=== PATIENT | male | born 1965 | race Caucasian/White ===

== ENCOUNTER 2022-06-21 11:52 | Emergency (ER) | payer OTHER ==
[2022-06-21] MEDS ORDERED: MAGNESIUM SULFATE-D5W PMX 1 GM in DEXTROSE/WATER 1 100ML.BAG IVPB STA (12:27)
[2022-06-21] MEDS ORDERED: methylPREDNISolone SOD SUCCI 125 MG/2 ML VIAL IV STA (12:27)
[2022-06-21] MEDS ORDERED: ALBUTEROL HFA INHALER INHALATION STA (12:27)
[2022-06-21] MEDS ORDERED: IPRATROPIUM-ALBUTEROL 3 ML NEB INHALATION STA ×2 (12:27→13:38)
[2022-06-21] MEDS ORDERED: ASPIRIN 81 MG PO STA (12:28)
--- NOTE | 2022-06-21 12:42 | ED ---
General Adult HPI - General Chief complaint: Shortness of Breath Stated complaint: SOB Time Seen by Provider: 06/21/22 12:11 Source: patient, RN notes reviewed, old records reviewed Mode of arrival: EMS Limitations: no limitations - History of Present Illness Initial comments: Patient is a 57-year-old male with no significant past medical history other than chronic tobacco use with no previously diagnosed medical illness presents emergency Department complaining of a one-month history of slightly worsening shortness of breath, however 3 days of worsened shortness of breath. It comes and goes. Does endorse mild cough. States he feels like he is wheezing. Noticed it was severe 3 days ago when he was working outside and humid weather. Has gotten worse since that time intermittently. States it comes and goes, no known association with rest but does notice that it does sometimes come back with activity. Denies any chest pain but states there is an occasional pressure with shortness of breath is present and is not on any medications or inhalers at home. Does endorse a productive cough of clear mucus. Denies any abdominal pain, nausea, vomiting. Denies any current chest pain, shortness breath. Denies any fevers, chills. No known sick contacts. Was vaccinated for Covid. No history of leg swelling. Denies orthopnea. Denies PND. No history of blood clots. Is not on blood thinners. Presents for further evaluation at this time. Did originally present to urgent care and states that the shortness of breath was Severe when he walks in the car into urgent care, causing him to need to sit down and rest. Denies syncopal episode. Denies hitting his head or injuring himself. Currently denies any symptoms at this time. - Related Data Home Medications Medication Instructions Recorded Confirmed Fexofenadine HCl [Heidi Allergy] 180 mg PO DAILY 06/21/22 06/21/22 Ibuprofen [Motrin Ib] 800 mg PO Q8H PRN 06/21/22 06/21/22 Melatonin 3 mg PO HS 06/21/22 06/21/22 Previous Rx's Medication Instructions Recorded Albuterol Inhaler [Ventolin Hfa 2 puff INHALATION RT-QID #8 gm 06/21/22 Inhaler] Doxycycline Hyclate 100 mg PO BID 7 Days #14 cap 06/21/22 predniSONE [Deltasone] 40 mg PO DAILY 5 Days #10 tab 06/21/22 Allergies Allergy/AdvReac Type Severity Reaction Status Date / Time egg AdvReac STOMACH Verified 06/21/22 12:52 CRAMPS Review of Systems ROS Statement: Those systems with pertinent positive or pertinent negative responses have been documented in the HPI. Review of Systems: CONST: Denies fever EYES: Denies blurry vision ENT: Denies nasal congestion C/V: Denies Chest pain RESP: Endorses shortness of breath GI: Denies abdominal pain : Denies dysuria SKIN: Denies rash. MSK: Denies joint pain. NEURO: Denies headache ROS Other: All systems not noted in ROS Statement are negative. Past Medical History Past Medical History: No Reported History History of Any Multi-Drug Resistant Organisms: None Reported Past Surgical History: No Surgical Hx Reported Past Psychological History: No Psychological Hx Reported Smoking Status: Current every day smoker Past Alcohol Use History: None Reported Past Drug Use History: None Reported General Exam - General Exam Comments Initial Comments: General: Appears in no acute distress. HEAD: Normal with no signs of head trauma. EYES: PERRLA, EOMI, conjunctiva normal, no discharge. ENT: Hearing grossly intact, normal oropharynx. RESPIRATORY: Bilateral end expiratory wheezing. No rhonchi appreciated. No increased work of breathing. No hypoxia at rest. C/V: Regular rate and rhythm. S1 and S2 auscultated, no edema, peripheral pulses 2+ and intact throughout ABD: Abd is soft, nontender, nondistended EXT: Normal range of motion, no obvious deformity SKIN: No rashes or lesions observed on exposed skin. NEURO: Alert and oriented 4. Limitations: no limitations Course Vital Signs 06/21/22 06/21/22 06/21/22 11:59 13:16 13:43 Temperature 98.4 F 98 F Pulse Rate 95 68 85 Respiratory 20 16 18 Rate Blood Pressure 146/88 140/60 O2 Sat by Pulse 96 98 Oximetry 06/21/22 06/21/22 06/21/22 13:52 14:15 14:29 Temperature Pulse Rate 87 84 91 Respiratory 18 16 18 Rate Blood Pressure O2 Sat by Pulse Oximetry Medical Decision Making - Medical Decision Making Based on the patient's presentation and physical exam, I'm concerned for cardio pulmonary process for his current shortness of breath. Patient will be given an aspirin, as well as treated for COPD as he is a smoker with bilateral end expiratory wheezing. We will also obtain cardiopulmonary labs including troponin, d-dimer, BNP as we cannot rule out PE. EKG and chest x-ray will be obtained. Covid and flu swabs will be sent. He was in agreement with this plan. Vital signs are within normal limits. EKG showed no signs of acute ischemia. Chest x-ray reveals no acute cardiopulmonary process. Laboratory studies are remarkable for Covid, flu negative. Troponin is undetectable. BNP within normal limits. D-dimer within normal limits. Remainder the labs are unremarkable. On reevaluation following 2 breathing treatments, patient's wheezing is improved. Overall he is feeling improved. Vital signs remain within normal li mits. I discussed with him that I believe he has an onset of COPD as well as acute bronchitis with productive cough. We'll provide him with a dose of antibiotics prior to discharge as well as a prescription for antibiotics, steroids, inhaler. He would like to go home I do believe this is reasonable with strict return precautions. Will return if worsening shortness of breath, difficulty breathing. He was in agreement this plan. I will provide the patient with a prescription for prednisone, albuterol inhaler, doxycycline. I instructed the patient to follow up with their PCP in the next 1-3 days. . I explained that the patient should return to the emergency department if they experience any worsening symptoms. Strict return precautions were discussed with the patient. The patient expressed understanding of these instructions. I answered all questions that the patient had. The patient was discharged home in good condition with their prescriptions and follow up information. - Lab Data Result diagrams: 06/21/22 12:41 06/21/22 12:41 Lab Results 06/21/22 06/21/22 06/21/22 Range/Units 12:41 12:41 12:41 WBC 8.4 (3.8-10.6) k/uL RBC 5.02 (4.30-5.90) m/uL Hgb 15.8 (13.0-17.5) gm/dL Hct 48.5 (39.0-53.0) % MCV 96.6 (80.0-100.0) fL MCH 31.5 (25.0-35.0) pg MCHC 32.6 (31.0-37.0) g/dL RDW 12.7 (11.5-15.5) % Plt Count 249 (150-450) k/uL MPV 7.4 Neutrophils % 69 % Lymphocytes % 18 % Monocytes % 5 % Eosinophils % 6 % Basophils % 1 % Neutrophils # 5.8 (1.3-7.7) k/uL Lymphocytes # 1.5 (1.0-4.8) k/uL Monocytes # 0.4 (0-1.0) k/uL Eosinophils # 0.5 (0-0.7) k/uL Basophils # 0.1 (0-0.2) k/uL PT 10.8 (9.0-12.0) sec INR 1.0 (<1.2) APTT 25.3 (22.0-30.0) sec D-Dimer 0.32 (<0.60) mg/L FEU Sodium 140 (137-145) mmol/L Potassium 4.3 (3.5-5.1) mmol/L Chloride 105 (98-107) mmol/L Carbon Dioxide 21 L (22-30) mmol/L Anion Gap 14 mmol/L BUN 10 (9-20) mg/dL Creatinine 0.85 (0.66-1.25) mg/dL Est GFR (CKD-EPI)AfAm >90 (>60 ml/min/1.73 sqM) Est GFR (CKD-EPI)NonAf >90 (>60 ml/min/1.73 sqM) Glucose 107 H (74-99) mg/dL Calcium 9.2 (8.4-10.2) mg/dL Total Bilirubin 0.9 (0.2-1.3) mg/dL AST 25 (17-59) U/L ALT 15 (4-49) U/L Alkaline Phosphatase 65 (38-126) U/L Troponin I (0.000-0.034) ng/mL NT-Pro-B Natriuret Pep pg/mL Total Protein 7.2 (6.3-8.2) g/dL Albumin 4.4 (3.5-5.0) g/dL Coronavirus (PCR) (Not Detectd) Influenza Type A RNA (Not Detectd) Influenza Type B (PCR) (Not Detectd) 06/21/22 06/21/22 06/21/22 Range/Units 12:41 12:41 12:41 WBC (3.8-10.6) k/uL RBC (4.30-5.90) m/uL Hgb (13.0-17.5) gm/dL Hct (39.0-53.0) % MCV (80.0-100.0) fL MCH (25.0-35.0) pg MCHC (31.0-37.0) g/dL RDW (11.5-15.5) % Plt Count (150-450) k/uL MPV Neutrophils % % Lymphocytes % % Monocytes % % Eosinophils % % Basophils % % Neutrophils # (1.3-7.7) k/uL Lymphocytes # (1.0-4.8) k/uL Monocytes # (0-1.0) k/uL Eosinophils # (0-0.7) k/uL Basophils # (0-0.2) k/uL PT (9.0-12.0) sec INR (<1.2) APTT (22.0-30.0) sec D-Dimer (<0.60) mg/L FEU Sodium (137-145) mmol/L Potassium (3.5-5.1) mmol/L Chloride (98-107) mmol/L Carbon Dioxide (22-30) mmol/L Anion Gap mmol/L BUN (9-20) mg/dL Creatinine (0.66-1.25) mg/dL Est GFR (CKD-EPI)AfAm (>60 ml/min/1.73 sqM) Est GFR (CKD-EPI)NonAf (>60 ml/min/1.73 sqM) Glucose (74-99) mg/dL Calcium (8.4-10.2) mg/dL Total Bilirubin (0.2-1.3) mg/dL AST (17-59) U/L ALT (4-49) U/L Alkaline Phosphatase (38-126) U/L Troponin I <0.012 (0.000-0.034) ng/mL NT-Pro-B Natriuret Pep 221 pg/mL Total Protein (6.3-8.2) g/dL Albumin (3.5-5.0) g/dL Coronavirus (PCR) (Not Detectd) Influenza Type A RNA Not Detected (Not Detectd) Influenza Type B (PCR) Not Detected (Not Detectd) 06/21/22 Range/Units 12:41 WBC (3.8-10.6) k/uL RBC (4.30-5.90) m/uL Hgb (13.0-17.5) gm/dL Hct (39.0-53.0) % MCV (80.0-100.0) fL MCH (25.0-35.0) pg MCHC (31.0-37.0) g/dL RDW (11.5-15.5) % Plt Count (150-450) k/uL MPV Neutrophils % % Lymphocytes % % Monocytes % % Eosinophils % % Basophils % % Neutrophils # (1.3-7.7) k/uL Lymphocytes # (1.0-4.8) k/uL Monocytes # (0-1.0) k/uL Eosinophils # (0-0.7) k/uL Basophils # (0-0.2) k/uL PT (9.0-12.0) sec INR (<1.2) APTT (22.0-30.0) sec D-Dimer (<0.60) mg/L FEU Sodium (137-145) mmol/L Potassium (3.5-5.1) mmol/L Chloride (98-107) mmol/L Carbon Dioxide (22-30) mmol/L Anion Gap mmol/L BUN (9-20) mg/dL Creatinine (0.66-1.25) mg/dL Est GFR (CKD-EPI)AfAm (>60 ml/min/1.73 sqM) Est GFR (CKD-EPI)NonAf (>60 ml/min/1.73 sqM) Glucose (74-99) mg/dL Calcium (8.4-10.2) mg/dL Total Bilirubin (0.2-1.3) mg/dL AST (17-59) U/L ALT (4-49) U/L Alkaline Phosphatase (38-126) U/L Troponin I (0.000-0.034) ng/mL NT-Pro-B Natriuret Pep pg/mL Total Protein (6.3-8.2) g/dL Albumin (3.5-5.0) g/dL Coronavirus (PCR) Not Detected (Not Detectd) Influenza Type A RNA (Not Detectd) Influenza Type B (PCR) (Not Detectd) - EKG Data -: EKG Interpreted by Me EKG Comments: 12-lead Electrocardiogram Interpretation Note EKG was reviewed and interpreted by myself. 12-lead ECG performed at 1242 is interpreted by me as revealing normal sinus rhythm at a rate of 93 beats per minute. [place] is normal. AR intervals 150 ms. QRS duration is 92 ms. QTC is 387 ms.. There were no ST or T wave abnormalities to suggest myocardial ischemia or injury. R wave progression across the precordium was satisfactory. By my interpretation this EKG is non-diagnostic for acute ischemia. Disposition Clinical Impression: COPD exacerbation, Bronchitis Disposition: HOME SELF-CARE Condition: Good Instructions (If sedation given, give patient instructions): Acute Bronchitis (ED), COPD (Chronic Obstructive Pulmonary Disease) (ED) Prescriptions: predniSONE [Deltasone] 40 mg PO DAILY 5 Days #10 tab Doxycycline Hyclate 100 mg PO BID 7 Days #14 cap Albuterol Inhaler [Ventolin Hfa Inhaler] 2 puff INHALATION RT-QID #8 gm Is patient prescribed a controlled substance at d/c from ED?: No Referrals: None,Stated [Primary Care Provider] - 1-2 days Norberto Tubbs [STAFF PHYSICIAN] - 1-2 days Time of Disposition: 14:30
[2022-06-21 12:51] LABS: Basophils # (A) 0.1 k/uL (0-0.2); Basophils % (A) 1 %; Eosinophils # (A) 0.5 k/uL (0-0.7); Eosinophils % (A) 6 %; HCT 48.5 % (39.0-53.0); HGB 15.8 gm/dL (13.0-17.5); Lymphocytes # (A) 1.5 k/uL (1.0-4.8); Lymphocytes % (A) 18 %; MCH 31.5 pg (25.0-35.0); MCHC 32.6 g/dL (31.0-37.0); MCV 96.6 fL (80.0-100.0); Mean Platelet Volume 7.4; Monocytes # (A) 0.4 k/uL (0-1.0); Monocytes % (A) 5 %; Neutrophils # (A) 5.8 k/uL (1.3-7.7); Neutrophils % (A) 69 %; Platelet Count 249 k/uL (150-450); RBC 5.02 m/uL (4.30-5.90); RDW 12.7 % (11.5-15.5); WBC 8.4 k/uL (3.8-10.6)
[2022-06-21 13:05] LABS: Partial Thromboplastin Time 25.3 sec (22.0-30.0); Prothrombin Time 10.8 sec (9.0-12.0)
[2022-06-21 13:08] LABS: ALT 15 U/L (4-49); AST 25 U/L (17-59); African American GFR (CKD) >90 (>60 ml/min/1.73 sqM); Albumin 4.4 g/dL (3.5-5.0); Alkaline Phosphatase 65 U/L (38-126); Anion Gap 14 mmol/L; Blood Urea Nitrogen 10 mg/dL (9-20); Calcium 9.2 mg/dL (8.4-10.2); Carbon Dioxide 21 mmol/L (22-30); Chloride 105 mmol/L (98-107); Glucose 107 mg/dL (74-99); Non-African American GFR(CKD) >90 (>60 ml/min/1.73 sqM); Potassium 4.3 mmol/L (3.5-5.1); Sodium 140 mmol/L (137-145); Total Bilirubin 0.9 mg/dL (0.2-1.3); Total Protein 7.2 g/dL (6.3-8.2)
[2022-06-21 13:20] VITALS: TEMP 98
--- NOTE | 2022-06-21 13:41 | XR ---
EXAMINATION TYPE: XR chest 2V DATE OF EXAM: 06/21/2022 COMPARISON: NONE TECHNIQUE: PA and lateral views submitted. HISTORY: Difficulty breathing FINDINGS: The lungs are clear and there is no pneumothorax, pleural effusion, or focal pneumonia. Heart size normal. No overt failure. Hyperinflation suggests COPD. IMPRESSION: 1. No acute process.
[2022-06-21] MEDS ORDERED: DOXYCYCLINE 100 MG CAP PO STA (14:48)
[2022-06-21 15:22] VITALS: BP 140/68; PULSE 68; RESP 16
== END 2022-06-21 15:34 | disposition home or self-care (01) ==
LOC: EC 11:52
DX: J44.1 Chronic obstructive pulmonary disease with (acute) exacerbation (principal); F17.200 Nicotine dependence, unspecified, uncomplicated; Z20.822 Contact with and (suspected) exposure to COVID-19; Z91.012 Allergy to eggs
CPT/HCPCS: 36415; 94640 ×2; 93005; 85379; 83880; 80053; 84484; 85025; 85610; 85730; 87502; 87635; 71046; 99285; 96374; 96375; J2930; J3475

== ENCOUNTER → 2022-08-11 | Outpatient (CLI) | payer OTHER ==
--- NOTE | 2022-08-12 09:10 | CA ---
Stress Echo Report Corona Burrell Age: 57 Gender: M : 1965 Exam Date: 08/11/2022 09:39 Exam Location: [facility] Ht (in): 72 Wt (lb): 22 Ordering Physician: Maliha Bay DO Referring Physician: Giulia Lopez Mechanical Car Checker: Millie Carmona RDCS Technologist Procedure CPT: Indication: R55 SYNCOPE AND COLLAPSE ICD-9 Codes: Rhythm: Patient History: Cardiac Medications: Medications in past 24 hours: Contrast: Stress Results Protocol: Berny Total dose(mL): Exercise Duration (min:sec): Max ST Depression (mm): Angina Score: Paez Score: METS: 10.7 Resting HR: 85 Resting BP: 119 / 65 Peak HR: 157 Peak BP: / 74 Max Predicted HR: 164 96 % Max Predicted HR Target HR: 139 Double Product: Stress Summary: BP Response: Reason for Termination: Cardiac Symptoms: ECG Analysis Resting ECG: Stress ECG: Arrhythmia: Echo Analysis Resting Echo: Peak Echo Analysis: MEASUREMENTS (Male/Female) Normal Values CONCLUSIONS Good exercise tolerance Normal EKG in response to exercise Normal echocardiogram in response to exercise Dr. Dominik Celis MD (Electronically Signed) Final Date: 12 August 2022 09:09
== END | disposition home or self-care (01) ==
LOC: RADNMMAIN 09:16
PROVIDERS: ATTEND Family Medicine
DX: R55 Syncope and collapse (principal)
CPT/HCPCS: 93351; Q9950

== ENCOUNTER → 2022-08-19 | Outpatient (CLI) | payer OTHER ==
--- NOTE | 2022-08-19 08:22 | CTL ---
EXAMINATION TYPE: CT Low Dose Lung DATE OF EXAM ORDERED: 08/19/2022 HISTORY: Z87.891 PERSONAL HISTORY OF NICOTINE DEPENDENCE. Lung cancer screening CT DLP: 122.[address] CTDI: 3.0 mGy Automated exposure control for dose reduction was used. SCREENING VISIT: First screening visit COMPARISON: Chest radiograph 06/21/2022 TECHNIQUE: Low dose computed tomography scan was performed through the chest at 1 mm thick sections a nd reconstructed images in multiple planes at 1 mm and [address] DIAGNOSTIC QUALITY: Satisfactory FINDINGS: LUNG NODULES: No concerning pulmonary nodules. LUNGS: COPD: Severity: Mild Fibrosis: Severity: None Lymph nodes: None Other findings: None RIGHT PLEURAL SPACE: Effusion: None Calcification: None Thickening: Apical mild thickening. Pneumothorax: None LEFT PLEURAL SPACE: Effusion: None Calcification: None Thickening: Apical mild thickening. Pneumothorax: None HEART: Heart Size: Normal Coronary Calcification: None Pericardial Effusion: None OTHER FINDINGS: Upper abdomen: None Bony thorax: None Supraclavicular region: None Other: None IMPRESSION: No concerning pulmonary nodules. CT LUNG RAD AND CT CHEST RECOMMENDATION: Lung-Rad 1 Negative: Continue annual screening with LDCT in 12 months. S Modifier (other clinically significant findings): None
== END | disposition home or self-care (01) ==
LOC: RADCTMAIN 06:25
PROVIDERS: ATTEND Family Medicine
DX: Z12.2 Encounter for screening for malignant neoplasm of respiratory organs (principal); Z87.891 Personal history of nicotine dependence
CPT/HCPCS: 71271

== ENCOUNTER 2022-09-30 12:45 | Day surgery (SDC) | payer OTHER ==
[~2022-09-30 12:45] MED LIST: LACTATED RINGERS 1,000 ML IV SCH
[2022-09-30 14:00] VITALS: RESP 16; TEMP 98.1
[2022-09-30] MEDS ORDERED: PROPOFOL 10 MG/ML 20 ML VIAL IV ONE (14:53)
[2022-09-30] MEDS ORDERED: LIDOCAINE 2% INJ 20 MG/ML (2 ML VIAL) ONE (14:53)
--- NOTE | 2022-09-30 15:14 | P.PCN ---
Date of Procedure: 09/30/22 Procedure(s) Performed: BRIEF HISTORY: Patient is a 57-year-old pleasant white male scheduled for an elective colonoscopy as a part of screening for colon cancer/positive cologuard. PROCEDURE PERFORMED: Colonoscopy with snare polypectomy and tattooing with Blanca. PREOPERATIVE DIAGNOSIS: Screening for colon cancer/positive cologuard. IV sedation per Anesthesia. PROCEDURE: After informed consent was obtained, the patient, was brought into the endoscopy unit. IV sedation was administered by Anesthesia under continuous monitoring. Digital rectal examination was normal. Initially the Olympus CF-160 flexible video colonoscope was then inserted in the rectum, gradually advanced into the cecum without any difficulty. Careful examination was performed as the scope was gradually being withdrawn. Ileocecal valve and the appendiceal orifice were visualized and appeared normal. Prep was excellent. Mucosa of the cecum, ascending colon, appeared normal. In the hepatic flexure there was a 1 cm broad-based polyp removed by snare polypectomy followed by tattooing with Blanca ink. Complete polypectomy was accomplished. Rest of the transverse colon, descending colon, sigmoid colon, and rectum appeared normal. The proximal rectum there were 3 polyps measuring between 3 mm, 5 mm and 7 mm in size removed by snare polypectomy. Retroflexion was performed in the rectum and no lesions were seen. The patient tolerated the procedure well. IMPRESSION: 1 cm broad-based hepatic flexure polyp status post polypectomy followed by tattooing with Blanca ink 3 mm, 5 mm and 7 mm rectal polyp status post polypectomy RECOMMENDATIONS: Findings of this examination were discussed with the patient well as his family. He was advised to follow with the biopsy results if the biopsy reveals adenoma he can have a repeat colonoscopy in 3 years.
[2022-09-30 15:33] VITALS: BP 140/80; PULSE 77
== END 2022-09-30 15:56 | disposition home or self-care (01) ==
LOC: ORWHC2ENDO 12:45
PROVIDERS: ATTEND Internal Medicine Gastroenterology
DX: R19.5 Other fecal abnormalities (principal); D12.3 Benign neoplasm of transverse colon; K62.1 Rectal polyp
CPT/HCPCS: 45385; 44404; J2704; J2001; 88305

== ENCOUNTER → 2023-12-25 | Outpatient (CLI) | payer OTHER ==
--- NOTE | 2023-12-25 11:49 | MR ---
EXAMINATION TYPE: MR Prostate wo/w con DATE OF EXAM: 12/25/2023 9:15 AM COMPARISON: None. CLINICAL INDICATION:Male, 58 years old with history of C61 PROSTATE CA; Prostate cancer. TECHNIQUE: Multi-planar, multi-sequence imaging of the pelvis is performed prior to and following the uncomplicated administration of bolus intravenous gadolinium. CONTRAST: 9 Gadavist Interpretive Criteria: PI-RADS v2.1 SERUM PSA: 12.6 on 12/06/2023. 9.8 on 04/03/2023. SURGICAL PATHOLOGY: Positive biopsy on 09/02/2022 FINDINGS: Prostatic dimensions: 4.6 x 3.8 x 3.7 cm. "Bullet" Volume:42.33 (PSA density=0.30 ng/mL/mL) CENTRAL GLAND (Central and Transition Zones/CZ+TZ): Multiple bilateral, heterogenous appearing hypertrophic stromal nodules, without suspicious lesion. ( PI-RADS 2) PERIPHERAL ZONE (PZ): Right peripheral gland mid gland low T2 signal region measuring 27 x 13 x 15 with associated high DWI and low ADC signal. This extends along the capsule without obvious extension at this time. There is arterial enhancement within this region on postcontrast imaging. (PI-RADS 5) SEMINAL VESICLES (SV): Symmetric and unremarkable. PERIPROSTATIC TISSUES: Unremarkable. LYMPH NODES: No enlarged pelvic lymph node. REMAINING PELVIS: Bladder wall is within normal limits given distention. No abnormal free or organized intrapelvic fluid collection. No pathologic bowel dilation or mural thickening. No hernia visualized OSSEOUS STRUCTURES: No suspicious osseous abnormality. IMPRESSION: 1. PI-RADS 5 lesion in the right peripheral zone mid gland measuring 27 x 13 x 15 mm. No extracapsula r extension at this time. 2. Mild BPH, estimated gland volume 42.33 mL. 3. No suspicious osseous lesion. No lymphadenopathy. No evidence of prostate adenocarcinoma involving the periprostatic tissues.
== END | disposition home or self-care (01) ==
LOC: RADMRIMAIN 07:51
PROVIDERS: ATTEND Urology
DX: N40.0 Benign prostatic hyperplasia without lower urinary tract symptoms (principal); C61 Malignant neoplasm of prostate
CPT/HCPCS: 72197; A9585

== ENCOUNTER → 2024-01-24 | Outpatient (CLI) | payer OTHER ==
[2024-01-24 18:57] LABS: Basophils # (A) 0.14 X 10*3/uL (0.00-0.10); Basophils % (A) 2.1 %; Eosinophils # (A) 0.01 X 10*3/uL (0.04-0.35); Eosinophils % (A) 0.1 %; HGB 15.1 g/dL (13.0-17.0); Lymphocytes # (A) 2.13 X 10*3/uL (0.90-5.00); Lymphocytes % (A) 31.6 %; MCH 31.8 pg (27.0-32.0); MCHC 33.6 g/dL (32.0-37.0); MCV 94.7 FL (80.0-97.0); Mean Platelet Volume 10.2 FL (9.5-12.2); Monocytes # (A) 0.66 X 10*3/uL (0.20-1.00); Monocytes % (A) 9.8 %; NRBC Per 100 WBC 0 X 10*3/uL (0.00-0.01); Neutrophils # (A) 3.77 X 10*3/uL (1.80-7.70); Neutrophils % (A) 56.1 %; Platelet Count 283 X 10*3/uL (140-440); RBC 4.75 X 10*6/uL (4.40-5.60); RDW 12.6 % (11.5-14.5); WBC 6.73 X 10*3/uL (4.50-10.00)
[2024-01-24 19:36] LABS: Blood Urea Nitrogen 8.6 mg/dL (9.0-27.0); Calcium 9.3 mg/dL (8.7-10.3); Carbon Dioxide 26.2 mmol/L (21.6-31.8); Chloride 101 mmol/L (96-109); Glucose 123 mg/dL (70-110); Potassium 4.3 mmol/L (3.5-5.5); Sodium 138 mmol/L (135-145)
[2024-01-24 20:34] LABS: Appearance,Urine Clear (Clear); Bilirubin,Urine Negative (Negative); Blood,Urine Negative (Negative); Color,Urine Yellow (Yellow); Ketones,Urine Negative (Negative); Nitrite,Urine Negative (Negative); PH, Urine 6.5; Specific Gravity,Urine 1.011 (1.001-1.030)
== END | disposition home or self-care (01) ==
LOC: LABPAT 14:52
PROVIDERS: ATTEND Urology
DX: Z01.812 Encounter for preprocedural laboratory examination (principal); C61 Malignant neoplasm of prostate
CPT/HCPCS: 80048; 81003; 85025; 87086

== ENCOUNTER 2024-01-30 11:21 | Day surgery (SDC) | payer OTHER ==
--- NOTE | 2024-01-30 11:19 | P.HPIHPCON ---
History of Present Illness H&P Date: 01/30/24 Chief Complaint: Prostate cancer This is a 58-year-old male with history of [place] 6 prostate cancer on active surveillance, underwent an MRI, which showed evidence of a PI-RADS 5 lesion, discussed with him at this point I recommend rebiopsy in to ensure there is no progression of his disease, discussed with him the risk of biopsy which includes but not limited to bleeding, infection. He understood all the risk and agreed to proceed with an MRI fusion biopsy Consent for Procedure: I have explained the operation/procedure to the patient, including the risks, benefits, side effects, alternative therapies (including not receiving the proposed treatment or service), the likelihood of the patient achieving his/her goals, and potential recuperation problems for the procedure/sedation/analgesia, as well as any blood products, if indicated. I also explained to the patient the risks, benefits and side effects of the alternatives, as well as the risks related to not receiving the proposed procedure, care, treatment, or services. Past Medical History Past Medical History: Cancer, COPD, Osteoarthritis (OA), Prostate Disorder, Skin Disorder Additional Past Medical History / Comment(s): PSA elevated, had bx., dx. low grade prostate cancer- Pt recently diagnosed 06/2022-Stage 2 emphysema. eczema like rash to hands using steroid cream. treated for bronchitis about 3 weeks ago with abx History of Any Multi-Drug Resistant Organisms: None Reported Past Surgical History: No Surgical Hx Reported Additional Past Surgical History / Comment(s): colonscopy, prostate bx Past Anesthesia/Blood Transfusion Reactions: No Reported Reaction Additional Past Anesthesia/Blood Transfusion Reaction / Comment(s): no family problems w/anesthesia Smoking Status: Current every day smoker - Past Family History Mother Family Medical History: CVA/TIA Additional Family Medical History / Comment(s): aneurysm Medications and Allergies Home Medications Medication Instructions Recorded Confirmed Type Albuterol Inhaler [Ventolin Hfa 1 - 2 puff INHALATION Q6H PRN 01/24/24 01/24/24 History Inhaler] Ibuprofen [Motrin Ib] 600 mg PO DIRECTED PRN 01/24/24 01/24/24 History Otc Mucinex 1 tab PO HS PRN 01/24/24 01/24/24 History Tiotropium 2.5 Mcg/Puff [Spiriva 2 puff INHALATION HS 01/24/24 01/24/24 History Respimat 2.5 Mcg] Unk Steroid Cream 1 applic TOPICAL DIRECTED PRN 01/24/24 01/24/24 History Allergies Allergy/AdvReac Type Severity Reaction Status Date / Time No Known Allergies Allergy Verified 01/24/24 10:03 Surgical - Exam - General no distress, no pain - Eyes normal ocular movement, no pale - ENT normal nares, normal mucosa - Respiratory normal expansion, normal respiratory effort Assessment and Plan Assessment: OR for MRI fusion biopsies
[~2024-01-30 11:21] MED LIST changes: +GENTAMICIN 120 MG in SODIUM CHLORIDE 0.9% 100 ML IVPB PRN; -LACTATED RINGERS 1,000 ML IV SCH
[2024-01-30 11:57] VITALS: RESP 16; TEMP 98.1
[2024-01-30] MEDS: GENTAMICIN 40 MG/ML 2 ML VIAL IM PRN (11:58)
[2024-01-30] MEDS: LACTATED RINGERS 1,000 ML IV SCH (12:05)
[2024-01-30 12:11] LABS: Glucose,Whole Blood 121 mg/dL (70-110)
[2024-01-30] MEDS ORDERED: MIDAZOLAM 2 MG/2 ML VIAL ONE (13:45)
[2024-01-30] MEDS ORDERED: PROPOFOL 10 MG/ML 20 ML VIAL IV ONE (13:45)
[2024-01-30] MEDS ORDERED: fentaNYL (PF) 50 MCG/ML 2 ML AMP ONE (13:45)
--- NOTE | 2024-01-30 14:08 | P.OP ---
Date of Procedure: 01/30/24 Preoperative Diagnosis: Prostate cancer Postoperative Diagnosis: Same Procedure(s) Performed: MRI fusion biopsies of the prostate Anesthesia: MAC Surgeon: Vito Bustamante Estimated Blood Loss (ml): 1 Pathology: other (prostate biopsies) Condition: stable Disposition: PACU Indications for Procedure: This is a 58-year-old male with history of [place] 6 prostate cancer on active surveillance, underwent an MRI, which showed evidence of a PI-RADS 5 lesion, discussed with him at this point I recommend rebiopsy in to ensure there is no progression of his disease, discussed with him the risk of biopsy which includes but not limited to bleeding, infection. He understood all the risk and agreed to proceed with an MRI fusion biopsy Description of Procedure: The patient was taken to the operating room and placed in the left lateral decubitus position. The [employer] transrectal ultrasound probe was placed intrarectally. It was then placed within the stand of the [employer] MRI/TRUS Fusion for Prostate Biopsy system. The prostate was imaged in both the axial and sagittal planes,L. Using the Biopsy gun, 3 biopsies were obtained from the target lesion, there were was one lesions, . The remaining 12 biopsies of the peripheral zone were obtained utilizing a standard template. Once the procedure was completed, the ultrasound probe was removed. The patient tolerated the procedure well was taken to the recovery room stable condition
[2024-01-30 14:52] VITALS: BP 124/68; PULSE 82
== END 2024-01-30 14:44 | disposition home or self-care (01) ==
LOC: OR 11:21
PROVIDERS: ATTEND Urology
DX: C61 Malignant neoplasm of prostate (principal); J44.9 Chronic obstructive pulmonary disease, unspecified; M19.90 Unspecified osteoarthritis, unspecified site; F17.200 Nicotine dependence, unspecified, uncomplicated; Z79.51 Long term (current) use of inhaled steroids; Z86.73 Personal history of transient ischemic attack (TIA), and cerebral infarction without residual deficits; Z79.899 Other long term (current) drug therapy
CPT/HCPCS: 55700; 88344; 88305; J2250; J1580; J3010; J2704

== ENCOUNTER 2024-02-05 09:29 | Inpatient (IN) | payer OTHER ==
--- NOTE | 2024-02-05 10:04 | XR ---
EXAMINATION TYPE: XR chest 2V DATE OF EXAM: 02/05/2024 9:57 AM CLINICAL INDICATION:Male, 58 years old with history of cough Mild SOB; PHH COMPARISON: 06/21/2022 TECHNIQUE: XR chest 2V. Frontal and lateral views of the chest.. FINDINGS: Lines/Tubes/Devices: No indwelling lines are seen. Heart/mediastinum: Heart size is normal. Mediastinum appears normal. Pulmonary vascularity: Hilar shadows appear similar to previous. No significant vascular engorgement is suggested. Lungs/Pleura: Lungs appear hyperinflated with relative lucency, this can be seen with emphysema/COPD. There is no evidence of pleural effusion, focal consolidation, or pneumothorax. Musculoskeletal: No acute osseous abnormality demonstrated in the limits of the exam. Mild degenerat nat changes. Other findings: None. IMPRESSION: No acute findings, or significant interval change.
--- NOTE | 2024-02-05 10:23 | ED ---
URI HPI - General Chief Complaint: Upper Respiratory Infection Stated Complaint: sob,cough Time Seen by Provider: 02/05/24 09:59 Source: patient, RN notes reviewed Mode of arrival: ambulatory Limitations: no limitations - History of Present Illness Initial Comments: This is a 58-year-old male who presents to the emergency department for coughing, congestion, and shortness of breath. States that he has COPD and over the last 3 to 4 days he has had increasing shortness of breath and difficulty breathing. He has inhalers but does not do any breathing treatments at home. Denies any fevers. The cough is described as nonproductive. States that he has stage II emphysema. MD Complaint: cough, nasal congestion - Related Data Home Medications Medication Instructions Recorded Confirmed Albuterol Inhaler [Ventolin Hfa 1 - 2 puff INHALATION RT-Q6H PRN 01/24/24 02/05/24 Inhaler] Tiotropium 2.5 Mcg/Puff [Spiriva 2 puff INHALATION RT-HS 01/24/24 02/05/24 Respimat 2.5 Mcg] Cpm/PE/Dm/Acetaminophen/Guaifn 2 tab PO Q4H PRN 02/05/24 02/05/24 [Tylenol Cold-Flu Day-Nt Caplet] guaiFENesin-DM 100-10MG/5ML 20 ml PO Q4H PRN 02/05/24 02/05/24 [Robitussin DM] Allergies Allergy/AdvReac Type Severity Reaction Status Date / Time No Known Allergies Allergy Verified 02/05/24 12:32 Review of Systems ROS Statement: Those systems with pertinent positive or pertinent negative responses have been documented in the HPI. ROS Other: All systems not noted in ROS Statement are negative. Past Medical History Past Medical History: Cancer, COPD, Osteoarthritis (OA), Prostate Disorder, Skin Disorder Additional Past Medical History / Comment(s): PSA elevated, had bx., dx. low grade prostate cancer- Pt recently diagnosed 06/2022-Stage 2 emphysema. eczema like rash to hands using steroid cream. treated for bronchitis about 3 weeks ago with abx History of Any Multi-Drug Resistant Organisms: None Reported Past Surgical History: No Surgical Hx Reported Additional Past Surgical History / Comment(s): colonscopy, prostate bx Past Anesthesia/Blood Transfusion Reactions: No Reported Reaction Additional Past Anesthesia/Blood Transfusion Reaction / Comment(s): no family problems w/anesthesia Past Psychological History: No Psychological Hx Reported Smoking Status: Current every day smoker Past Alcohol Use History: None Reported Past Drug Use History: None Reported - Past Family History Mother Family Medical History: CVA/TIA Additional Family Medical History / Comment(s): aneurysm General Exam Limitations: no limitations General appearance: alert, in no apparent distress Head exam: Present: atraumatic, normocephalic, normal inspection Respiratory exam: Present: wheezes, decreased breath sounds, prolonged expiratory Cardiovascular Exam: Present: regular rate, normal rhythm, normal heart sounds. Absent: systolic murmur, diastolic murmur, rubs, gallop, clicks Neurological exam: Present: alert, oriented X3, CN II-XII intact Psychiatric exam: Present: normal affect, normal mood Skin exam: Present: warm, dry, intact, normal color. Absent: rash Course Vital Signs 02/05/24 02/05/24 02/05/24 09:38 10:50 10:59 Temperature 98.6 F Pulse Rate 114 H 130 H 136 H Respiratory 18 Rate Blood Pressure 147/87 O2 Sat by Pulse 93 L Oximetry 02/05/24 02/05/24 02/05/24 11:20 11:40 11:45 Temperature 99.4 F 99.8 F H 101.0 F H Pulse Rate 126 H 126 H Respiratory 30 H 22 Rate Blood Pressure 110/80 O2 Sat by Pulse 84 L 93 L Oximetry 02/05/24 02/05/24 02/05/24 11:49 11:56 13:57 Temperature 101.0 F H 99.0 F Pulse Rate 132 H 119 H Respiratory 20 Rate Blood Pressure O2 Sat by Pulse 96 Oximetry 02/05/24 02/05/24 02/05/24 14:47 15:35 15:37 Temperature 99.0 F 98.5 F Pulse Rate 108 H 108 H 102 H Respiratory 18 18 Rate Blood Pressure 106/59 O2 Sat by Pulse 94 L 94 L Oximetry 02/05/24 15:46 Temperature Pulse Rate 110 H Respiratory Rate Blood Pressure O2 Sat by Pulse Oximetry Medical Decision Making - Medical Decision Making This is a 58 year old male who presents to the emergency department for coughing and shortness of breath. Was pt. sent in by a medical professional or institution? @ -No Did you speak to anyone other than the patient for history? @ -No Did you review nursing and triage notes? @ -Yes, and I agree, it is accurate with regards to the patient's symptoms. Were old charts reviewed? @ -No Differential Diagnosis? @ -Differential Cough: Influenza, Covid, RSV, croup, allergic rhinitis, GERD, pneumonia, bronchitis, COPD, viral pharyngitis, streptococcal pharyngitis, this is not meant to be an all-inclusive list. EKG interpreted by me (3pts min.)? @ -EKG interpreted by me demonstrating the following: Sinus tachycardia. Ventricular rate 123 bpm, KS interval 153 ms, QRS duration 86 ms, QTc 364 ms. X-rays interpreted by me (1pt min.)? @ -Chest x-ray obtained, my interpretation identifies no localized consolidations or infiltrates. CT interpreted by me (1pt min.)? @ -CTA of the chest obtained. My interpretation identifies no evidence of a pulmonary embolus. U/S interpreted by me (1pt. min.)? @ -Not obtained What testing was considered but not performed? (CT, X-rays, U/S, labs)? Why? @ -None What meds were considered but not given? Why? @ -None Did you discuss the management of the patient with other professionals? @ -Yes, Dr. Weaver, who accepts the patient for admission. Did you reconcile home meds? @ -No Was smoking cessation discussed for >3mins.? @ -I discussed smoking cessation for greater than 3 minutes. The risk of smoking were discussed with the patient including but not limited to risks of cancer, stroke, coronary artery disease and COPD. Also discussed with patient were multiple methods of quitting smoking. Lastly we discussed the financial cost of smoking. Was critical care preformed (if so, how long)? @ -Yes, >35 minutes Were there social determinants of health that impacted care today? How? (Homelessness, low income, unemployed, alcoholism, drug addiction, transportatio n, low edu. Level, literacy, decrease access to med. care, correction, rehab)? @ -No Was there de-escalation of care discussed even if they declined? (Discuss DNR or withdrawal of care, Hospice)? @ -No What co-morbidities impacted this encounter? (DM, HTN, Smoking, COPD, CAD, Cancer, CVA, Hep., AIDS, mental health diagnosis, sleep apnea, morbid obesity)? @ -COPD, smoking Was patient admitted / discharged? @ -Admitted. Patient positive for influenza A. Patient had significant wheezing and increased work of breathing on initial examination. He was given a DuoNeb breathing treatment with some improvement, however he continued to worsen and became hypoxic at 84% on room air. He was persistently tachycardic with his heart rate ranging from the 120s to 130s. We subsequently proceeded with lab work and further workup. He was also given Solu-Medrol, Tamiflu, magnesium, and IV fluids. Lab work demonstrates an elevated lactic acid of 3.1 and elevated D- dimer of 0.83. Chest x-ray reveals no acute process. CTA of the chest obtained due to symptoms and elevated D-dimer. No evidence of a pulmonary embolus was identified or any other acute process. Emphysematous changes were noted. Patient maintained on nasal cannula ranging from 2 to 4 L based on his response. He was also intermittently febrile. Patient admitted to medicine for COPD with hypoxia and influenza A. Scheduled and PRN breathing treatments ordered. Consult placed for pulmonology. Undiagnosed new problem with uncertain prognosis? @ -None Drug Therapy requiring intensive monitoring for toxicity (Heparin, Nitro, Insulin, Cardizem)? @ -None Were any procedures done? @ -None Diagnosis/symptom? @ -COPD with hypoxia Acute, or Chronic, or Acute on Chronic? @ -Acute on chronic Uncomplicated (without systemic symptoms) or Complicated (systemic symptoms)? @ -Complicated Side effects of treatment? @ -None Exacerbation, Progression, or Severe Exacerbation] @ -Severe exacerbation Poses a threat to life or bodily function? @ -Yes Diagnosis/symptom? @ -Influenza A Acute, or Chronic, or Acute on Chronic? @ -Acute Uncomplicated (without systemic symptoms) or Complicated (systemic symptoms)? @ -Complicated Side effects of treatment? @ -None Exacerbation, Progression, or Severe Exacerbation] @ -Not applicable Poses a threat to life or bodily function? @ -Yes This case was discussed in detail with the attending ED physician, Dr. Bay. Presentation, findings, and treatment plan discussed in detail as well. - Lab Data Result diagrams: 02/05/24 11:36 02/05/24 11:36 Lab Results 02/05/24 02/05/24 02/05/24 Range/Units 09:43 11:36 11:36 WBC 9.1 (3.8-10.6) k/uL RBC 4.88 (4.30-5.90) m/uL Hgb 15.8 (13.0-17.5) gm/dL Hct 48.0 (39.0-53.0) % MCV 98.4 (80.0-100.0) fL MCH 32.4 (25.0-35.0) pg MCHC 32.9 (31.0-37.0) g/dL RDW 12.8 (11.5-15.5) % Plt Count 197 (150-450) k/uL MPV 8.1 Neutrophils % 79 % Lymphocytes % 11 % Monocytes % 7 % Eosinophils % 1 % Basophils % 1 % Neutrophils # 7.1 (1.3-7.7) k/uL Lymphocytes # 1.0 (1.0-4.8) k/uL Monocytes # 0.6 (0-1.0) k/uL Eosinophils # 0.1 (0-0.7) k/uL Basophils # 0.1 (0-0.2) k/uL PT 12.8 H (10.0-12.5) sec INR 1.2 H (<1.2) APTT 27.7 (22.0-30.0) sec D-Dimer 0.83 H (<0.60) mg/L FEU Sodium (137-145) mmol/L Potassium (3.5-5.1) mmol/L Chloride (98-107) mmol/L Carbon Dioxide (22-30) mmol/L Anion Gap mmol/L BUN (9-20) mg/dL Creatinine (0.66-1.25) mg/dL Est GFR (CKD-EPI)AfAm (>60 ml/min/1.73 sqM) Est GFR (CKD-EPI)NonAf (>60 ml/min/1.73 sqM) Glucose (74-99) mg/dL Lactic Ac Sepsis Rflx Plasma Lactic Acid Isael (0.7-2.0) mmol/L Calcium (8.4-10.2) mg/dL Total Bilirubin (0.2-1.3) mg/dL AST (17-59) U/L ALT (4-49) U/L Alkaline Phosphatase (38-126) U/L Troponin I (0.000-0.034) ng/mL C-Reactive Protein (<1.0) mg/dL Total Protein (6.3-8.2) g/dL Albumin (3.5-5.0) g/dL Influenza Type A (PCR) Detected A (Not Detectd) Influenza Type B (PCR) Not Detected (Not Detectd) RSV (PCR) Not Detected (Not Detectd) SARS-CoV-2 (PCR) Not Detected (Not Detectd) 02/05/24 02/05/24 02/05/24 Range/Units 11:36 11:36 11:56 WBC (3.8-10.6) k/uL RBC (4.30-5.90) m/uL Hgb (13.0-17.5) gm/dL Hct (39.0-53.0) % MCV (80.0-100.0) fL MCH (25.0-35.0) pg MCHC (31.0-37.0) g/dL RDW (11.5-15.5) % Plt Count (150-450) k/uL MPV Neutrophils % % Lymphocytes % % Monocytes % % Eosinophils % % Basophils % % Neutrophils # (1.3-7.7) k/uL Lymphocytes # (1.0-4.8) k/uL Monocytes # (0-1.0) k/uL Eosinophils # (0-0.7) k/uL Basophils # (0-0.2) k/uL PT (10.0-12.5) sec INR (<1.2) APTT (22.0-30.0) sec D-Dimer (<0.60) mg/L FEU Sodium 137 (137-145) mmol/L Potassium 4.5 (3.5-5.1) mmol/L Chloride 103 (98-107) mmol/L Carbon Dioxide 25 (22-30) mmol/L Anion Gap 9 mmol/L BUN 11 (9-20) mg/dL Creatinine 0.98 (0.66-1.25) mg/dL Est GFR (CKD-EPI)AfAm >90 (>60 ml/min/1.73 sqM) Est GFR (CKD-EPI)NonAf 86 (>60 ml/min/1.73 sqM) Glucose 122 H (74-99) mg/dL Lactic Ac Sepsis Rflx Plasma Lactic Acid Isael 3.1 H* (0.7-2.0) mmol/L Calcium 8.7 (8.4-10.2) mg/dL Total Bilirubin 0.8 (0.2-1.3) mg/dL AST 29 (17-59) U/L ALT 18 (4-49) U/L Alkaline Phosphatase 68 (38-126) U/L Troponin I <0.012 (0.000-0.034) ng/mL C-Reactive Protein 4.2 H (<1.0) mg/dL Total Protein 7.3 (6.3-8.2) g/dL Albumin 4.4 (3.5-5.0) g/dL Influenza Type A (PCR) (Not Detectd) Influenza Type B (PCR) (Not Detectd) RSV (PCR) (Not Detectd) SARS-CoV-2 (PCR) (Not Detectd) 02/05/24 Range/Units 12:44 WBC (3.8-10.6) k/uL RBC (4.30-5.90) m/uL Hgb (13.0-17.5) gm/dL Hct (39.0-53.0) % MCV (80.0-100.0) fL MCH (25.0-35.0) pg MCHC (31.0-37.0) g/dL RDW (11.5-15.5) % Plt Count (150-450) k/uL MPV Neutrophils % % Lymphocytes % % Monocytes % % Eosinophils % % Basophils % % Neutrophils # (1.3-7.7) k/uL Lymphocytes # (1.0-4.8) k/uL Monocytes # (0-1.0) k/uL Eosinophils # (0-0.7) k/uL Basophils # (0-0.2) k/uL PT (10.0-12.5) sec INR (<1.2) APTT (22.0-30.0) sec D-Dimer (<0.60) mg/L FEU Sodium (137-145) mmol/L Potassium (3.5-5.1) mmol/L Chloride (98-107) mmol/L Carbon Dioxide (22-30) mmol/L Anion Gap mmol/L BUN (9-20) mg/dL Creatinine (0.66-1.25) mg/dL Est GFR (CKD-EPI)AfAm (>60 ml/min/1.73 sqM) Est GFR (CKD-EPI)NonAf (>60 ml/min/1.73 sqM) Glucose (74-99) mg/dL Lactic Ac Sepsis Rflx Y Plasma Lactic Acid Isael (0.7-2.0) mmol/L Calcium (8.4-10.2) mg/dL Total Bilirubin (0.2-1.3) mg/dL AST (17-59) U/L ALT (4-49) U/L Alkaline Phosphatase (38-126) U/L Troponin I (0.000-0.034) ng/mL C-Reactive Protein (<1.0) mg/dL Total Protein (6.3-8.2) g/dL Albumin (3.5-5.0) g/dL Influenza Type A (PCR) (Not Detectd) Influenza Type B (PCR) (Not Detectd) RSV (PCR) (Not Detectd) SARS-CoV-2 (PCR) (Not Detectd) - Radiology Data Radiology results: report reviewed, image reviewed Disposition Clinical Impression: COPD with hypoxia, Influenza A Disposition: ADMITTED IP TO THIS HOSP Referrals: Maliha Bay DO [Primary Care Provider] - 1-2 days
[2024-02-05] MEDS: methylPREDNISolone SOD SUCCI 125 MG/2 ML VIAL IM ONE (10:25)
[2024-02-05] MEDS: BENZONATATE 100 MG CAP PO STA (10:25)
[2024-02-05] MEDS: IPRATROPIUM-ALBUTEROL 3 ML NEB INHALATION STA ×2 (10:48→11:38)
[2024-02-05] MEDS: ACETAMINOPHEN TAB 500 MG TAB PO STA (12:00)
[2024-02-05 12:07] LABS: Basophils # (A) 0.1 k/uL (0-0.2); Basophils % (A) 1 %; Eosinophils # (A) 0.1 k/uL (0-0.7); Eosinophils % (A) 1 %; HGB 15.8 gm/dL (13.0-17.5); Lymphocytes % (A) 11 %; MCH 32.4 pg (25.0-35.0); MCHC 32.9 g/dL (31.0-37.0); MCV 98.4 fL (80.0-100.0); Mean Platelet Volume 8.1; Monocytes # (A) 0.6 k/uL (0-1.0); Monocytes % (A) 7 %; Neutrophils # (A) 7.1 k/uL (1.3-7.7); Neutrophils % (A) 79 %; Platelet Count 197 k/uL (150-450); RBC 4.88 m/uL (4.30-5.90); RDW 12.8 % (11.5-15.5); WBC 9.1 k/uL (3.8-10.6)
[2024-02-05 12:21] LABS: INR 1.2 (<1.2); Partial Thromboplastin Time 27.7 sec (22.0-30.0); Prothrombin Time 12.8 sec (10.0-12.5)
[2024-02-05] MEDS: SODIUM CHLORIDE 0.9% 1,000 ML IV STA ×2 (12:34→16:03)
[2024-02-05] MEDS: OSELTAMIVIR 75 MG CAP PO SCH (12:34)
[2024-02-05 13:04] LABS: ALT 18 U/L (4-49); AST 29 U/L (17-59); African American GFR (CKD) >90 (>60 ml/min/1.73 sqM); Albumin 4.4 g/dL (3.5-5.0); Alkaline Phosphatase 68 U/L (38-126); Anion Gap 9 mmol/L; Blood Urea Nitrogen 11 mg/dL (9-20); C Reactive Protein 4.2 mg/dL (<1.0); Calcium 8.7 mg/dL (8.4-10.2); Carbon Dioxide 25 mmol/L (22-30); Chloride 103 mmol/L (98-107); Glucose 122 mg/dL (74-99); Non-African American GFR(CKD) 86 (>60 ml/min/1.73 sqM); Sodium 137 mmol/L (137-145); Total Bilirubin 0.8 mg/dL (0.2-1.3); Total Protein 7.3 g/dL (6.3-8.2)
[2024-02-05 13:05] LABS: Potassium 4.5 mmol/L (3.5-5.1)
[2024-02-05] MEDS: MAGNESIUM SULFATE-D5W PMX 1 GM in DEXTROSE/WATER 1 100ML.BAG IVPB ONE (13:46)
--- NOTE | 2024-02-05 14:35 | CT ---
EXAMINATION TYPE: CT chest angio for PE CT DLP: 424.1 mGycm, Automated exposure control for dose reduction was used. DATE OF EXAM: 02/05/2024 2:24 PM COMPARISON: Chest radiograph from same day. CLINICAL INDICATION:Male, 58 years old with history of Tachycardia, ASIA, elevated d-dimer; Tachycardi a, URI, Dyspnea, PE TECHNIQUE/CONTRAST: CTA scan of the thorax is performed without and with IV Contrast, patient injected with 100 ml mL of Isovue 370, MIP images are created and reviewed these are created on a separate workstation.. FINDINGS: Pulmonary Artery: There is no evidence for a central filling defect within the pulmonary vasculature to suggest acute pulmonary embolism. Limited evaluation of the segmental and subsegmental branches se condary to bolus timing. The pulmonary artery is of normal size. Lungs/Pleura: No evidence of focal consolidation, pleural effusion or pneumothorax. Mild paraseptal e mphysema with centrilobular emphysema changes are seen throughout the lungs. Airway: Large airways are patent. Heart: Heart is within normal limits for size. Vasculature: No evidence of aortic aneurysm. Calcified plaque at the origin of the subclavian artery on the right with up to 25-50% stenosis. Moderate atherosclerosis of the aorta. Visualized vessels ar e patent. Mediastinum: No gross evidence of adenopathy. Musculoskeletal: No acute osseous abnormalities Soft Tissues: Unremarkable. Lower neck: No significant findings. Upper Abdomen: No significant findings. IMPRESSION: 1. No evidence of central pulmonary embolism. Limited evaluation of the segmental and subsegmental br anches. 2. Mild emphysema. 3. Narrowing of the subclavian artery at its origin up to 25-50% secondary to calcified plaque.
[2024-02-05] MEDS ORDERED: IBUPROFEN 400 MG TAB PO PRN (14:59)
[2024-02-05] MEDS ORDERED: ONDANSETRON 4 MG/2 ML VIAL IVP PRN (14:59)
[2024-02-05] MEDS ORDERED: KETOROLAC 15 MG/ML 1 ML VIAL IVP PRN (14:59)
[2024-02-05] MEDS ORDERED: ACETAMINOPHEN TAB 325 MG TAB PO PRN (14:59)
[2024-02-05] MEDS ORDERED: NALOXONE 0.4 MG/ML 1 ML VIAL IV PRN (14:59)
[2024-02-05] MEDS ORDERED: HYDROcodone/APAP 5-325MG 1 EACH TAB PO PRN (14:59)
[2024-02-05] MEDS: IPRATROPIUM-ALBUTEROL 3 ML NEB INHALATION SCH (15:32)
[2024-02-05] MEDS: SODIUM CHLORIDE 0.9% 1,000 ML IV ONE (22:12)
[2024-02-05] MEDS: SODIUM CHLORIDE 0.9% 1,000 ML IV SCH (23:54)
[2024-02-05] MEDS: IPRATROPIUM-ALBUTEROL 3 ML NEB INHALATION PRN (23:54)
--- NOTE | 2024-02-06 03:14 | P.CNPUL ---
History of Present Illness Consult date: 02/06/24 Requesting physician: Carrie Rachel Reason for consult: other (Influenza A infection, COPD exacerbation) Chief complaint: Flulike symptoms History of present illness: I am seeing this patient in consultation today 02/06/2024 in the emergency room after he presented with flulike symptoms that started over the last 24 to 48 hours. Patient is a 58-year-old white male with past medical history significant for COPD, current everyday smoker, prostate cancer. He has been seen in the pulmonary office in the past, but does not routinely follow. His FEV1 is 60% of predicted. He follows with a nurse practitioner out of [facility]. Patient presented to emergency room yesterday morning complaining of 24 to 48 hours of runny nose, mostly nonproductive coughing, chest congestion, and shortness of breath. He denies any measured fevers while at home, however, was febrile with a Tmax of 101 F in the emergency room. He has been very fatigued with generalized myalgias, and had to call out of work. On arrival to the emergency room, he did test positive for influenza A. Follow- up chest x-ray did not show any focal focal infiltrates or evidence of a superimposed pneumonia. His D-dimer was elevated so a follow-up chest CTA was performed which did not show any central pulmonary embolism. There was mild emphysema. Narrowing of the right subclavian artery at its origin up to 25 to 50%, secondary to calcified plaque. Patient subclavian artery stenosis is relatively asymptomatic. No numbness, tingling, paresthesias, pain, weakness of the upper extremities. No dizziness, blurred vision, syncope. CBC on arrival unremarkable. No leukocytosis. BMP on arrival unremarkable. Patient has received a total of 3 L normal saline bolus. Normal saline fusing at 75 mL/h. Lactic acid level peaked at 5.1 down to 2.8. Procalcitonin level was mildly elevated at 0.22. Remaining viral panel was negative for influenza B, RSV, COVID. Patient is currently lying in bed, on 3 L/min nasal cannula, in no acute distress. Vital signs are stable. Review of Systems REVIEW OF SYSTEMS: CONSTITUTIONAL: Denies any recent significant weight loss or weight gain. EYES: Denies change in vision. EARS, NOSE, MOUTH, THROAT: Denies headaches, denies sore throat. CARDIOVASCULAR: Denies chest pain, palpitations or syncopal episodes. RESPIRATORY: See HPI. GASTROINTESTINAL: Admits reduced appetite. Denies abdominal pain, nausea or vomiting, diarrhea. GENITOURINARY: Denies hematuria, denies infections. MUSKULOSKELETAL: Denies pain, denies swelling. INTEGUMENTARY: Denies rash, denies eczema. NEUROLOGICAL: Denies recent memory loss, no recent seizure activity. PSYCHIATRIC: Denies anxiety, denies depression. HEMATOLOGIC/LYMPHATIC: Denies anemia, denies enlarged lymph node Past Medical History Past Medical History: Cancer, COPD, Osteoarthritis (OA), Prostate Disorder, Skin Disorder Additional Past Medical History / Comment(s): PSA elevated, had bx., dx. low grade prostate cancer- Pt recently diagnosed 06/2022-Stage 2 emphysema. eczema like rash to hands using steroid cream. treated for bronchitis about 3 weeks ago with abx History of Any Multi-Drug Resistant Organisms: None Reported Past Surgical History: No Surgical Hx Reported Additional Past Surgical History / Comment(s): colonscopy, prostate bx Past Anesthesia/Blood Transfusion Reactions: No Reported Reaction Additional Past Anesthesia/Blood Transfusion Reaction / Comment(s): no family problems w/anesthesia Past Psychological History: No Psychological Hx Reported Smoking Status: Current every day smoker Past Alcohol Use History: None Reported Past Drug Use History: None Reported - Past Family History Mother Family Medical History: CVA/TIA Additional Family Medical History / Comment(s): aneurysm Medications and Allergies Home Medications Medication Instructions Recorded Confirmed Type Albuterol Inhaler [Ventolin Hfa 1 - 2 puff INHALATION RT-Q6H PRN 01/24/24 02/05/24 History Inhaler] Tiotropium 2.5 Mcg/Puff [Spiriva 2 puff INHALATION RT-HS 01/24/24 02/05/24 History Respimat 2.5 Mcg] Cpm/PE/Dm/Acetaminophen/Guaifn 2 tab PO Q4H PRN 02/05/24 02/05/24 History [Tylenol Cold-Flu Day-Nt Caplet] guaiFENesin-DM 100-10MG/5ML 20 ml PO Q4H PRN 02/05/24 02/05/24 History [Robitussin DM] Allergies Allergy/AdvReac Type Severity Reaction Status Date / Time No Known Allergies Allergy Verified 02/05/24 12:32 Physical Exam Vitals: Vital Signs Temp Pulse Resp BP Pulse Ox 02/06/24 00:02 104 H 02/05/24 23:56 100 02/05/24 19:38 112 H 02/05/24 19:30 112 H 02/05/24 18:24 99.1 F 112 H 22 126/73 95 02/05/24 15:46 110 H 02/05/24 15:37 98.5 F 102 H 18 94 L 02/05/24 15:35 108 H 02/05/24 14:47 99.0 F 108 H 18 106/59 94 L 02/05/24 13:57 99.0 F 119 H 20 96 02/05/24 11:56 101.0 F H 02/05/24 11:49 132 H 02/05/24 11:45 101.0 F H 02/05/24 11:40 99.8 F H 126 H 22 110/80 93 L 02/05/24 11:20 99.4 F 126 H 30 H 84 L 02/05/24 10:59 136 H 02/05/24 10:50 130 H 02/05/24 09:38 98.6 F 114 H 18 147/87 93 L Intake and Output 02/05/24 02/05/24 02/06/24 14:59 22:59 06:59 Other: Weight 98.883 kg GENERAL EXAM: Alert, 58-year-old white male, appearing stated age,, comfortable in no apparent distress. HEAD: Normocephalic and atraumatic EYES: Normal reaction of pupils, equal size. NOSE: Clear discharge with erythemic turbinates. THROAT: No erythema or exudates. NECK: No masses, no JVD. CHEST: No chest wall deformity. LUNGS: Equal air entry with expiratory wheezes heard throughout. On 3 L/min nasal cannula. No conversational dyspnea or accessory muscle use while at rest. CVS: S1 and S2 normal with no audible murmur, regular rhythm. No extra heart sounds ABDOMEN: No hepatosplenomegaly, active bowel sounds, no guarding or rigidity. SPINE: No scoliosis or deformity SKIN: No rashes CENTRAL NERVOUS SYSTEM: No focal deficits, tone is normal in all 4 extremities. EXTREMITIES: There is no peripheral edema, clubbing, or cyanosis. Peripheral pulses are intact. Results - Laboratory Findings CBC and BMP: 02/05/24 11:36 02/05/24 11:36 PT/INR, D-dimer PT 12.8 sec (10.0-12.5) H 02/05/24 11:36 INR 1.2 (<1.2) H 02/05/24 11:36 D-Dimer 0.83 mg/L FEU (<0.60) H 02/05/24 11:36 Abnormal lab findings: Abnormal Labs 02/05/24 02/05/24 02/05/24 09:43 11:36 11:36 PT 12.8 H INR 1.2 H D-Dimer 0.83 H Glucose 122 H Plasma Lactic Acid Isael C-Reactive Protein 4.2 H Procalcitonin Influenza Type A (PCR) Detected A 02/05/24 02/05/24 02/05/24 11:36 11:36 14:44 PT INR D-Dimer Glucose Plasma Lactic Acid Isael 3.1 H* 2.8 H* C-Reactive Protein Procalcitonin 0.22 H Influenza Type A (PCR) 02/05/24 02/05/24 02/06/24 18:19 21:35 00:35 PT INR D-Dimer Glucose Plasma Lactic Acid Isael 4.7 H* 5.1 H* 2.8 H* C-Reactive Protein Procalcitonin Influenza Type A (PCR) - Diagnostic Findings Chest x-ray: image reviewed Assessment and Plan Assessment: Acute COPD exacerbation, secondary to acute influenza A infection, chest x-ray does not show any acute infiltrates or evidence of superimposed bacterial pneumonia. Acute hypoxemic respiratory failure, currently on 3 L/min nasal cannula, secondary to above Lactic acidosis, improving Subclavian artery stenosis, up to 25 to 50% stenosis on the right, asymptomatic and incidental finding Moderate chronic obstructive pulmonary disease, with an FEV1 60% of predicted Current ongoing tobacco dependence, is currently smoking 1/2 pack/day Plan: Patient's medications, labs, imaging were reviewed Continue supplemental oxygen, to maintain oxygen saturation of 92% or greater Continue combination of bronchodilators, Symbicort inhaler, and IV Solu-Medrol Continue Tamiflu 5-day course twice daily Smoking cessation counseling performed. Patient refused nicotine replacement Consider outpatient vascular evaluation We will continue to follow I have personally seen and examined the patient, performed the documentation and the assessment and plan as written. Number of minutes spent on the visit:20 Time with Patient: Greater than 30
[2024-02-06] MEDS: guaiFENesin-DM 100-10MG/5ML 10 ML CUP PO SCH (06:12)
[2024-02-06] MEDS: methylPREDNISolone SOD SUCCI 40 MG/ML 1 ML VIAL IV SCH (07:46)
[2024-02-06] MEDS: SYMBICORT 160-4.5 MCG INHALER INHALATION SCH (08:07)
[2024-02-06] MEDS: DOXYCYCLINE 100 MG CAP PO SCH (09:14)
--- NOTE | 2024-02-06 14:33 | P.HPIM ---
History of Present Illness H&P Date: 02/06/24 Chief Complaint: Worsening dyspnea with cough, lethargy This is a 58-year-old gentleman with past medical history significant for recent bronchitis about 3 weeks ago -completed antibiotic treatment and steroid taper, ongoing nicotine dependence emphysema , COPD, osteoarthritis, low-grade prostate cancer under surveillance and multiple other medical issues presented to the ER with complaints of worsening dyspnea, coughing, congestion and lethargy. Reports felt chills, afebrile over the weekend developed increased shortness of breath, Monday night into Monday morning increased coughing, lethargy, sleeping all day. On admission, afebrile, tachycardic, respiratory rate 18-30, tachypneic, O2 sat on room air 93%, decreased to 84% during the night and currently maintaining O2 sats in the low 90s on 4 L nasal cannula. Received 3 L normal saline bolus. Tmax 101, WBC 9.1. lactic acid 3.1 , high of 5.1, down to 1.9, procalcitonin elevated 0.22. D-dimer 0.83, chest CTA reported no evidence of central pulmonary embolism, limited evaluation of the segmental and subsegmental branches, mild emphysema, narrowing of the subclavian artery at its origin up to 25 to 50% secondary to calcified plaque. Denies syncope, numbness, tingling.Denies lightheadedness, dizziness or focal deficit. Denies chest pain, palpitations. hematology unremarkable. Electrolytes and renal function within normal limits, glucose 122. Viral studies tested positive for influenza type A. Review of Systems ROS Statement: Those systems with pertinent positive or pertinent negative responses have been documented in the HPI. ROS Other: All systems not noted in ROS Statement are negative. Past Medical History Past Medical History: Cancer, COPD, Osteoarthritis (OA), Prostate Disorder, Skin Disorder Additional Past Medical History / Comment(s): PSA elevated, had bx., dx. low grade prostate cancer- Pt recently diagnosed 06/2022-Stage 2 emphysema. eczema like rash to hands using steroid cream. treated for bronchitis about 3 weeks ago with abx History of Any Multi-Drug Resistant Organisms: None Reported Past Surgical History: No Surgical Hx Reported Additional Past Surgical History / Comment(s): colonscopy, prostate bx Past Anesthesia/Blood Transfusion Reactions: No Reported Reaction Additional Past Anesthesia/Blood Transfusion Reaction / Comment(s): no family problems w/anesthesia Past Psychological History: No Psychological Hx Reported Smoking Status: Current every day smoker Past Alcohol Use History: None Reported Past Drug Use History: None Reported - Past Family History Mother Family Medical History: CVA/TIA Additional Family Medical History / Comment(s): aneurysm Medications and Allergies Home Medications Medication Instructions Recorded Confirmed Type Albuterol Inhaler [Ventolin Hfa 1 - 2 puff INHALATION RT-Q6H PRN 01/24/24 02/05/24 History Inhaler] Tiotropium 2.5 Mcg/Puff [Spiriva 2 puff INHALATION RT-HS 01/24/24 02/05/24 History Respimat 2.5 Mcg] Cpm/PE/Dm/Acetaminophen/Guaifn 2 tab PO Q4H PRN 02/05/24 02/05/24 History [Tylenol Cold-Flu Day-Nt Caplet] guaiFENesin-DM 100-10MG/5ML 20 ml PO Q4H PRN 02/05/24 02/05/24 History [Robitussin DM] Allergies Allergy/AdvReac Type Severity Reaction Status Date / Time No Known Allergies Allergy Verified 02/05/24 12:32 Physical Exam Vitals: Vital Signs Temp Pulse Resp BP Pulse Ox 02/06/24 12:09 120 H 02/06/24 11:57 108 H 02/06/24 09:00 98 F 108 H 22 111/73 97 02/06/24 08:23 118 H 02/06/24 08:07 108 H 02/06/24 06:13 95 20 136/75 96 02/06/24 00:02 104 H 02/05/24 23:56 100 02/05/24 19:38 112 H 02/05/24 19:30 112 H 02/05/24 18:24 99.1 F 112 H 22 126/73 95 02/05/24 15:46 110 H 02/05/24 15:37 98.5 F 102 H 18 94 L 02/05/24 15:35 108 H 02/05/24 14:47 99.0 F 108 H 18 106/59 94 L 02/05/24 13:57 99.0 F 119 H 20 96 PHYSICAL EXAM: VITAL SIGNS: [As above] GENERAL: Alert and oriented x 3, sitting up at side of stretcher, no acute distress HEENT: Normocephalic conjunctivae normal. eyes normal. NECK: No JVD. No thyroid enlargement. No LNs CARDIOVASCULAR: S1, S2 regular.. No murmur RESPIRATION: Unlabored, equal air entry, expiratory wheezes scattered with bilat eral bases diminished. ABDOMEN: Soft, nontender . No guarding. no masses palpable. No ascites, No hepatosplenomegaly.Bowel sounds heard. LEGS: No edema. no swelling PSYCHIATRY: Alert and oriented X3, mood and affect normal. NERVOUS SYSTEM: Cranial N 2-12 grossly normal. Moves all 4 limbs. Diffuse weakness No focal deficits. Strength and sensation grossly intact.. Skin: Warm and dry, no rash Results CBC & Chem 7: 02/05/24 11:36 02/05/24 11:36 Labs: Abnormal Lab Results - Last 24 Hours (Table) 02/05/24 02/05/24 02/05/24 Range/Units 11:36 11:36 11:36 PT 12.8 H (10.0-12.5) sec INR 1.2 H (<1.2) D-Dimer 0.83 H (<0.60) mg/L FEU Glucose 122 H (74-99) mg/dL Plasma Lactic Acid Isael (0.7-2.0) mmol/L C-Reactive Protein 4.2 H (<1.0) mg/dL Procalcitonin 0.22 H (0.02-0.09) ng/mL 02/05/24 02/05/24 02/05/24 Range/Units 11:36 14:44 18:19 PT (10.0-12.5) sec INR (<1.2) D-Dimer (<0.60) mg/L FEU Glucose (74-99) mg/dL Plasma Lactic Acid Isael 3.1 H* 2.8 H* 4.7 H* (0.7-2.0) mmol/L C-Reactive Protein (<1.0) mg/dL Procalcitonin (0.02-0.09) ng/mL 02/05/24 02/06/24 Range/Units 21:35 00:35 PT (10.0-12.5) sec INR (<1.2) D-Dimer (<0.60) mg/L FEU Glucose (74-99) mg/dL Plasma Lactic Acid Isael 5.1 H* 2.8 H* (0.7-2.0) mmol/L C-Reactive Protein (<1.0) mg/dL Procalcitonin (0.02-0.09) ng/mL Assessment and Plan Assessment: Acute COPD exacerbation secondary to acute influenza A infection Acute hypoxic respiratory failure secondary to the above Lactic acidosis, resolved with IV fluid hydration Ongoing nicotine dependence Subclavian artery stenosis, up to 25 to 50% on the right, incidental finding per CTA, follow-up with vascular surgery outpatient Plan: Continue on current medication regimen ,monitoring and symptomatic treatment. Aggressive pulmonary toileting with nebulized bronchodilators, Symbicort and IV steroids. Maintain Tamiflu for the full 5-day course. Smoking sensation reinforced. Evaluated by pulmonary with recommendations noted. The impression and plan of care has been dictated as directed. : I performed a history and examination of this patient, discussed the same with the dictator. I agree with the dictator's note ,documented as a scribe. Any additional findings or plans will be noted.
--- NOTE | 2024-02-07 13:57 | P.PN ---
Subjective Progress Note Date: 02/07/24 H&P Date: 02/06/24 Chief Complaint: Worsening dyspnea with cough, lethargy This is a 58-year-old gentleman with past medical history significant for recent bronchitis about 3 weeks ago -completed antibiotic treatment and steroid taper, ongoing nicotine dependence emphysema , COPD, osteoarthritis, low-grade prostate cancer under surveillance and multiple other medical issues presented to the ER with complaints of worsening dyspnea, coughing, congestion and lethargy. Reports felt chills, afebrile over the weekend developed increased shortness of breath, Monday night into Monday morning increased coughing, lethargy, sleeping all day. On admission, afebrile, tachycardic, respiratory rate 18-30, tachypneic, O2 sat on room air 93%, decreased to 84% during the night and currently maintaining O2 sats in the low 90s on 4 L nasal cannula. Re ceived 3 L normal saline bolus. Tmax 101, WBC 9.1. lactic acid 3.1 , high of 5.1, down to 1.9, procalcitonin elevated 0.22. D-dimer 0.83, chest CTA reported no evidence of central pulmonary embolism, limited evaluation of the segmental and subsegmental branches, mild emphysema, narrowing of the subclavian artery at its origin up to 25 to 50% secondary to calcified plaque. Denies syncope, numbness, tingling.Denies lightheadedness, dizziness or focal deficit. Denies chest pain, palpitations. hematology unremarkable. Electrolytes and renal function within normal limits, glucose 122. Viral studies tested positive for influenza type A. 02/07/2024 maintained on Tamiflu, nebulized bronchodilators, IV steroids and Symbicort. Denies cough, reports shortness of breath. States weakness improv ing, increased ambulation in room. Maintaining O2 sats in the high 90s on 3-1/2 L of nasal cannula which can be further titrated down. Afebrile. Tachycardia resolved. Objective - Vital Signs Vital signs: Vital Signs Temp 97.6 F 02/07/24 07:46 Pulse 91 02/07/24 11:53 Resp 20 02/07/24 07:46 BP 128/76 02/07/24 07:46 Pulse Ox 98 02/07/24 08:25 FiO2 Intake & Output 03/02/07/24 02/07/24 18:59 06:59 18:59 Intake Total 200 120 Output Total 400 Balance -200 120 Weight 98.883 kg Intake: Oral 200 120 Output: Urine 400 Other: Voiding Method Toilet # Voids 1 - Exam PHYSICAL EXAM: VITAL SIGNS: [As above] GENERAL: Alert and oriented x 3, sitting up in chair, no acute distress HEENT: Normocephalic conjunctivae normal. eyes normal. MMM. NECK: Supple, no JVD. CARDIOVASCULAR: S1, S2 regular. No murmur RESPIRATION: Unlabored, equal air entry, minimal scattered rhonchi ABDOMEN: Soft, nontender . No guarding. +BS. LEGS: No edema. no swelling NERVOUS SYSTEM: Cranial N 2-12 grossly normal. No focal deficits. Strength and sensation grossly intact. Skin: Warm and dry, no rash - Labs CBC & Chem 7: 02/05/24 11:36 02/05/24 11:36 Assessment and Plan Assessment: Acute COPD exacerbation secondary to acute influenza A infection Acute hypoxic respiratory failure secondary to the above Lactic acidosis, resolved with IV fluid hydration Ongoing nicotine dependence Subclavian artery stenosis, up to 25 to 50% on the right, incidental finding per CTA, follow-up with vascular surgery outpatient Plan: Continue on current medication regimen ,monitoring and symptomatic treatment. Maintain aggressive pulmonary toileting with Tamiflu, nebulized bronchodilators, Symbicort and IV steroids. Titrate O2. smoking sensation reinforced. The impression and plan of care has been dictated as directed. : I performed a history and examination of this patient, discussed the same with the dictator. I agree with the dictator's note ,documented as a scribe. Any additional findings or plans will be noted.
--- NOTE | 2024-02-07 14:32 | P.PN ---
Subjective Progress Note Date: 02/07/24 I am seeing this patient in consultation today 02/06/2024 in the emergency room after he presented with flulike symptoms that started over the last 24 to 48 hours. Patient is a 58-year-old white male with past medical history significant for COPD, current everyday smoker, prostate cancer. He has been se en in the pulmonary office in the past, but does not routinely follow. His FEV1 is 60% of predicted. He follows with a nurse practitioner out of [facility]. Patient presented to emergency room yesterday morning complaining of 24 to 48 hours of runny nose, mostly nonproductive coughing, chest congestion, and shortness of breath. He denies any measured fevers while at home, however, was febrile with a Tmax of 101 F in the emergency room. He has been very fatigued with generalized myalgias, and had to call out of work. On arrival to the emergency room, he did test positive for influenza A. Follow- up chest x-ray did not show any focal focal infiltrates or evidence of a super imposed pneumonia. His D-dimer was elevated so a follow-up chest CTA was performed which did not show any central pulmonary embolism. There was mild emphysema. Narrowing of the right subclavian artery at its origin up to 25 to 50%, secondary to calcified plaque. Patient subclavian artery stenosis is relatively asymptomatic. No numbness, tingling, paresthesias, pain, weakness of the upper extremities. No dizziness, blurred vision, syncope. CBC on arrival unremarkable. No leukocytosis. BMP on arrival unremarkable. Patient has received a total of 3 L normal saline bolus. Normal saline fusing at 75 mL/h. Lactic acid level peaked at 5.1 down to 2.8. Procalcitonin level was mildly elevated at 0.22. Remaining viral panel was negative for influenza B, RSV, COVID. Patient is currently lying in bed, on 3 L/min nasal cannula, in no acute distress. Vital signs are stable. The patient is seen today February 07, 2024 in follow-up on the regular medical floor. He is currently resting comfortably in bed. Awake and alert in no acute distress. Feeling better today compared to yesterday. He is continued on DuoNeb inhalations, Symbicort, Solu-Medrol. Remains on Tamiflu. Remains on dox ycycline. Robitussin for cough. Lactic acid improved to 1.9. He is maintaining good O2 saturations in the upper 90s on 3 L/min per nasal cannula. He has been up ambulating in his room. Objective - Vital Signs Vital signs: Vital Signs Temp 97.6 F 02/07/24 07:46 Pulse 91 02/07/24 11:53 Resp 20 02/07/24 07:46 BP 128/76 02/07/24 07:46 Pulse Ox 98 02/07/24 08:25 FiO2 Intake & Output 02/06/24 02/07/24 02/07/24 18:59 06:59 18:59 Intake Total 200 120 Output Total 400 Balance -200 120 Weight 98.883 kg Intake: Oral 200 120 Output: Urine 400 Other: Voiding Method Toilet # Voids 1 - Exam GENERAL EXAM: Alert, active, 58-year-old male, on 3 L nasal cannula, comfortable in no apparent distress. HEAD: Normocephalic. EYES: Normal reaction of pupils, equal size. NOSE: Clear with pink turbinates. THROAT: No erythema or exudates. NECK: No masses, no JVD. CHEST: No chest wall deformity. LUNGS: Equal air entry with few scattered rhonchi bilaterally. CVS: S1 and S2 normal with no audible murmur, regular rhythm. ABDOMEN: No hepatosplenomegaly, normal bowel sounds, no guarding or rigidity. SPINE: No scoliosis or deformity SKIN: No rashes CENTRAL NERVOUS SYSTEM: No focal deficits, tone is normal in all 4 extremities. EXTREMITIES: There is no peripheral edema. No clubbing, no cyanosis. Peripheral pulses are intact. - Labs CBC & Chem 7: 02/05/24 11:36 02/05/24 11:36 Assessment and Plan Assessment: Acute COPD exacerbation, secondary to acute influenza A infection, chest x-ray does not show any acute infiltrates or evidence of superimposed bacterial pneumonia. Acute hypoxemic respiratory failure, currently on 3 L/min nasal cannula, secondary to above Lactic acidosis, recovered Subclavian artery stenosis, up to 25 to 50% stenosis on the right, asymptomatic and incidental finding Moderate chronic obstructive pulmonary disease, with an FEV1 60% of predicted Current ongoing tobacco dependence, is currently smoking 1/2 pack/day Plan: The patient was seen and evaluated Medications and labs reviewed Continue the current treatment plan Titrate down the FiO2 as tolerated Educated regarding smoking cessation Declined NicoDerm patch Possible discharge in the a.m. We will continue to follow I have personally seen and examined the patient, performed the documentation and the assessment and plan as written. Number of minutes spent on the visit: 10.
[2024-02-08 08:37] LABS: HCT 40.5 % (39.6-50.0); HGB 13.6 g/dL (13.0-17.0); MCH 32.2 pg (27.0-32.0); MCHC 33.6 g/dL (32.0-37.0); MCV 95.7 FL (80.0-97.0); Mean Platelet Volume 10.8 FL (9.5-12.2); NRBC Per 100 WBC 0 X 10*3/uL (0.00-0.01); Platelet Count 226 X 10*3/uL (140-440); RBC 4.23 X 10*6/uL (4.40-5.60); RDW 12.9 % (11.5-14.5); WBC 12.52 X 10*3/uL (4.50-10.00)
[2024-02-08 08:41] VITALS: BP 136/74; RESP 17; TEMP 98.2
[2024-02-08 08:42] VITALS: PULSE 70
[2024-02-08 09:00] LABS: BUN/Creat Ratio 18.38 Ratio (12.00-20.00); Blood Urea Nitrogen 14.7 mg/dL (9.0-27.0); Calcium 8.7 mg/dL (8.7-10.3); Carbon Dioxide 24.8 mmol/L (21.6-31.8); Chloride 102 mmol/L (96-109); Glucose 229 mg/dL (70-110); Potassium 4.7 mmol/L (3.5-5.5); Sodium 138 mmol/L (135-145)
--- NOTE | 2024-02-08 13:10 | P.DS ---
Providers Date of admission: 02/05/24 15:56 Expected date of discharge: 02/08/24 Attending physician: Venkatesh Weaver MD Consults: 02/05/24 14:59 Consult Physician Urgent Consulting Provider: Elsa Espitia Consult Reason/Comments: COPD with hypoxia, influenza A Do you want consulting provider notified?: Yes Primary care physician: [facility] Hospital Course: Final Diagnoses: Acute COPD exacerbation secondary to acute influenza A infection Acute hypoxic respiratory failure secondary to the above, resolved Lactic acidosis, resolved with IV fluid hydration Ongoing nicotine dependence Subclavian artery stenosis, up to 25 to 50% on the right, incidental finding per CTA, follow-up with vascular surgery outpatient Hospital course: This is a 58-year-old gentleman with past medical history significant for recent bronchitis about 3 weeks ago -completed antibiotic treatment and steroid taper, ongoing nicotine dependence emphysema , COPD, osteoarthritis, low-grade prostate cancer under surveillance and multiple other medical issues presented to the ER with complaints of worsening dyspnea, coughing, congestion and lethargy. Reports felt chills, afebrile over the weekend developed increased shortness of breath, Monday night into Monday morning increased coughing, lethargy, sleeping all day. On admission, afebrile, tachycardic, respiratory rate 18-30, tachypneic, O2 sat on room air 93%, decreased to 84% during the night and currently maintaining O2 sats in the low 90s on 4 L nasal cannula. Received 3 L normal saline bolus. Tmax 101, WBC 9.1. lactic acid 3.1 , high of 5.1, down to 1.9, procalcitonin elevated 0.22. D-dimer 0.83, chest CTA reported no evidence of central pulmonary embolism, limited evaluation of the segmental and subsegmental branches, mild emphysema, narrowing of the subclavian artery at its origin up to 25 to 50% secondary to calcified plaque. Denies syncope, numbness, tingling.Denies lightheadedness, dizziness or focal deficit. Denies chest pain, palpitations. hematology unremarkable. Electrolytes and renal function within normal limits, glucose 122. Viral studies tested positive for influenza type A. 02/07/2024 maintained on Tamiflu, nebulized bronchodilators, IV steroids and Symbicort. Denies cough, reports shortness of breath. States weakness improving, increased ambulation in room. Maintaining O2 sats in the high 90s on 3-1/2 L of nasal cannula which can be further titrated down. Afebrile. Tachycardia resolved. Significant clinical improvement. Oxygen weaned off, maintaining O2 sats in the 90s on room air. Denies chest pain, palpitations or increase in shortness of breath. Afebrile. Denies lightheadedness, dizziness or focal deficits. Smoking sensation reinforced. Patient will be discharged home today in a stable condition with guarded prognosis pending final DC recommendations and clearance per pulmonary. The impression and plan of care has been dictated as directed. : I performed a history and examination of this patient, discussed the same with the dictator. I agree with the dictator's note ,documented as a scribe. Any additional findings or plans will be noted. Patient Condition at Discharge: Stable Plan - Discharge Summary Discharge Rx Participant: No New Discharge Prescriptions: New Oseltamivir [Tamiflu] 75 mg PO Q12HR #3 cap Budesonide-Formot 160-4.5 Mcg [Symbicort 160-4.5 Mcg Inhaler] 2 puff INHALATION RT-BID #1 each Doxycycline [Vibramycin] 100 mg PO BID 3 Days #6 cap predniSONE 10 mg PO DIRECTED #30 tab Continue Tiotropium 2.5 Mcg/Puff [Spiriva Respimat 2.5 Mcg] 2 puff INHALATION RT-HS Cpm/PE/Dm/Acetaminophen/Guaifn [Tylenol Cold-Flu Day-Nt Caplet] 2 tab PO Q4H PRN PRN Reason: cold/flu symptoms Albuterol Inhaler [Ventolin Hfa Inhaler] 1 - 2 puff INHALATION RT-Q6H PRN PRN Reason: Wheezing guaiFENesin-DM 100-10MG/5ML [Robitussin DM] 20 ml PO Q4H PRN PRN Reason: cough/congestion Discharge Medication List Albuterol Inhaler [Ventolin Hfa Inhaler] 1 - 2 puff INHALATION RT-Q6H PRN 01/24/24 [History] Tiotropium 2.5 Mcg/Puff [Spiriva Respimat 2.5 Mcg] 2 puff INHALATION RT-HS 01/24/24 [History] Cpm/PE/Dm/Acetaminophen/Guaifn [Tylenol Cold-Flu Day-Nt Caplet] 2 tab PO Q4H PRN 02/05/24 [History] guaiFENesin-DM 100-10MG/5ML [Robitussin DM] 20 ml PO Q4H PRN 02/05/24 [History] Budesonide-Formot 160-4.5 Mcg [Symbicort 160-4.5 Mcg Inhaler] 2 puff INHALATION RT-BID #1 each 02/08/24 [Rx] Doxycycline [Vibramycin] 100 mg PO BID 3 Days #6 cap 02/08/24 [Rx] Oseltamivir [Tamiflu] 75 mg PO Q12HR #3 cap 02/08/24 [Rx] predniSONE 10 mg PO DIRECTED #30 tab 02/08/24 [Rx] Follow up Appointment(s)/Referral(s): Venkatesh Weaver MD [STAFF PHYSICIAN] - 1 Week
--- NOTE | 2024-02-08 15:39 | P.PN ---
Subjective Progress Note Date: 02/08/24 I am seeing this patient in consultation today 02/06/2024 in the emergency room after he presented with flulike symptoms that started over the last 24 to 48 hours. Patient is a 58-year-old white male with past medical history significant for COPD, current everyday smoker, prostate cancer. He has been se en in the pulmonary office in the past, but does not routinely follow. His FEV1 is 60% of predicted. He follows with a nurse practitioner out of [facility]. Patient presented to emergency room yesterday morning complaining of 24 to 48 hours of runny nose, mostly nonproductive coughing, chest congestion, and shortness of breath. He denies any measured fevers while at home, however, was febrile with a Tmax of 101 F in the emergency room. He has been very fatigued with generalized myalgias, and had to call out of work. On arrival to the emergency room, he did test positive for influenza A. Follow- up chest x-ray did not show any focal focal infiltrates or evidence of a super imposed pneumonia. His D-dimer was elevated so a follow-up chest CTA was performed which did not show any central pulmonary embolism. There was mild emphysema. Narrowing of the right subclavian artery at its origin up to 25 to 50%, secondary to calcified plaque. Patient subclavian artery stenosis is relatively asymptomatic. No numbness, tingling, paresthesias, pain, weakness of the upper extremities. No dizziness, blurred vision, syncope. CBC on arrival unremarkable. No leukocytosis. BMP on arrival unremarkable. Patient has received a total of 3 L normal saline bolus. Normal saline fusing at 75 mL/h. Lactic acid level peaked at 5.1 down to 2.8. Procalcitonin level was mildly elevated at 0.22. Remaining viral panel was negative for influenza B, RSV, COVID. Patient is currently lying in bed, on 3 L/min nasal cannula, in no acute distress. Vital signs are stable. The patient is seen today February 07, 2024 in follow-up on the regular medical floor. He is currently resting comfortably in bed. Awake and alert in no acute distress. Feeling better today compared to yesterday. He is continued on DuoNeb inhalations, Symbicort, Solu-Medrol. Remains on Tamiflu. Remains on dox ycycline. Robitussin for cough. Lactic acid improved to 1.9. He is maintaining good O2 saturations in the upper 90s on 3 L/min per nasal cannula. He has been up ambulating in his room. The patient is seen today February 08, 2024 in follow-up on the regular medical floor. He is sitting up at the bedside. Awake and alert in no acute distress. He is feeling back to his baseline. Maintaining good O2 saturations in the 90s on room air. He is continued on bronchodilators and steroids. Continued on Tamiflu. Continued on doxycycline. White count 12.5. Hemoglobin 13.6. Sodium 138. Potassium 4.7. Bicarb 25. BUN 15. Creatinine 0.8. Objective - Vital Signs Vital signs: Vital Signs Temp 98.2 F 02/08/24 08:00 Pulse 70 02/08/24 08:41 Resp 17 02/08/24 08:00 BP 136/74 02/08/24 08:00 Pulse Ox 94 L 02/08/24 08:00 FiO2 Intake & Output 02/07/24 02/08/24 02/08/24 18:59 06:59 18:59 Other: Voiding Method Toilet Toilet # Voids 5 2 - Exam GENERAL EXAM: Alert, active, 58-year-old male, on room air, in no apparent distress. HEAD: Normocephalic. EYES: Normal reaction of pupils, equal size. NOSE: Clear with pink turbinates. THROAT: No erythema or exudates. NECK: No masses, no JVD. CHEST: No chest wall deformity. LUNGS: Equal air entry with few scattered rhonchi bilaterally. CVS: S1 and S2 normal with no audible murmur, regular rhythm. ABDOMEN: No hepatosplenomegaly, normal bowel sounds, no guarding or rigidity. SPINE: No scoliosis or deformity SKIN: No rashes CENTRAL NERVOUS SYSTEM: No focal deficits, tone is normal in all 4 extremities. EXTREMITIES: There is no peripheral edema. No clubbing, no cyanosis. Peripheral pulses are intact. - Labs CBC & Chem 7: 02/08/24 05:49 02/08/24 05:49 Labs: Abnormal Lab Results - Last 24 Hours (Table) 02/08/24 02/08/24 Range/Units 05:49 05:49 WBC 12.52 H (4.50-10.00) X 10*3/uL RBC 4.23 L (4.40-5.60) X 10*6/uL MCH 32.2 H (27.0-32.0) pg Glucose 229 H (70-110) mg/dL Assessment and Plan Assessment: Acute COPD exacerbation, secondary to acute influenza A infection, chest x-ray does not show any acute infiltrates or evidence of superimposed bacterial pneumonia. Acute hypoxemic respiratory failure secondary to above. Recovered and on room air Lactic acidosis, recovered Subclavian artery stenosis, up to 25 to 50% stenosis on the right, asymptomatic and incidental finding Moderate chronic obstructive pulmonary disease, with an FEV1 60% of predicted Current ongoing tobacco dependence, is currently smoking 1/2 pack/day Plan: The patient was seen and evaluated Medications and labs reviewed Back to his baseline Stable and on room air Cleared for discharge Continue Symbicort, Spiriva, albuterol HFA Completed prednisone taper Completed course of Tamiflu Completed course of antibiotics Educated regarding smoking cessation I have personally seen and examined the patient, performed the documentation and the assessment and plan as written. Number of minutes spent on the visit: 10.
[2024-02-09] MEDS ORDERED: predniSONE 20 MG TAB PO SCH (09:00)
--- NOTE | 2024-02-14 12:01 | CDI ---
Documentation Clarification Form Date: 02/14/2024 11:34:28 AM From: Izabella Lakhani RN, CCDS Email: [email or web address] Admit Date: 02/05/2024 03:56:00 PM Patient Name: Corona Burrell Visit Number: [id number] Discharge Date: 02/08/2024 12:17:00 PM ATTENTION: The Clinical Documentation Specialists (CDI) and [facility] Coding Staff appreciate your assistance in clarifying documentation. Please respond to the clarification below the line at the bottom and electronically sign. The CDI & [facility] Coding staff will review the response and follow-up if needed. Please note: Queries are made part of the Legal Health Record. If you have any questions, please contact the author of this message via ITS. Dr. Venkatesh Weaver The patient had Influenza A, fever, tachycardia and lactic acidosis. Based on this information and the findings below, is there an additional diagnosis that is clinically appropriate for this patient? History/Risk Factors: Cancer, COPD, Osteoarthritis, Prostate Disorder and current smoker. Presented with cough, congestion and shortness of breath. Admitted with Influenza A. Clinical Indicators: H&P: "Acute COPD exacerbation secondary to acute influenza A infection. Acute hypoxic respiratory failure. Lactic acidosis, resolved with IV fluid hydration." 02/05 Pulmonary consult: "Lactic acidosis, improving." 02/04 WBC: 9.1 02/07 WBC: 12.5 02/04 Procalcitonin: 0.22 02/04 CRP: 4.2 02/04-02/05 Lactic acid: 3.1-2.8-4.7-5.1-2.8-1.9 02/04 Influenza type A: detected 02/04 Vital signs: Temp 98.6-99.8-101.0; HR 014-530-406-108; RR 18-30; pox 84% Treatment: Acetaminophen 1000mg x1 on 02/04; IM Solumedrol 125mg x1 on 02/04; IV Solumedrol 40mg Q8H 02/05-02/07; Tamiflu 75mg po BID 02/04-02/07 Antibiotics: Doxycycline 100mg po BID 02/05-02/07; IV Bolus: 0.9 NS IV bolus x3 on 3/25; 0.9 NS @75mL/hr 02/04-02/07 Is there an additional diagnosis that is clinically appropriate for this patient? [ X ] Viral Sepsis, present on admission [ ] No additional diagnosis/not clinically significant [ ] Other, please specify [ ] Unable to determine SIRS Criteria: 2 or more of the following may indicate SIRS Temperature < 96.8F (36C) or > 101.0F (38.3C) Heart Rate > 90 bpm Respiratory Rate > 20 breaths/min or PaCO2 < 32 mmHg White Blood Cell Count > 12,000 or < 4,000 cells/mm3 or > 10% bands MTDD
== END 2024-02-08 12:17 | disposition home or self-care (01) | DRG 871 ==
LOC: EC 09:29 → 4SSUR 15:56
PROVIDERS: ADMIT Family Medicine; ATTEND Family Medicine
DX: A41.89 Other specified sepsis (principal); J10.00 Influenza due to other identified influenza virus with unspecified type of pneumonia; J96.01 Acute respiratory failure with hypoxia; J44.1 Chronic obstructive pulmonary disease with (acute) exacerbation; J44.0 Chronic obstructive pulmonary disease with (acute) lower respiratory infection; E87.20 Acidosis, unspecified; R05.9 Cough, unspecified; J43.9 Emphysema, unspecified; C61 Malignant neoplasm of prostate; F17.210 Nicotine dependence, cigarettes, uncomplicated; Z71.6 Tobacco abuse counseling; I77.1 Stricture of artery; L30.9 Dermatitis, unspecified; R00.0 Tachycardia, unspecified; Z79.52 Long term (current) use of systemic steroids; Z85.46 Personal history of malignant neoplasm of prostate
CPT/HCPCS: 36415; 71046; 71275; 80048; 80053; 83605; 84145; 84484; 85025; 85027; 85379; 85610; 85730; 86140; 87636; 93005; 94640; 94760; 96361; 96365; 96372; 96376; 99291; 99406

== ENCOUNTER → 2024-03-23 | Outpatient (CLI) | payer OTHER ==
[2024-03-23 09:34] LABS: Appearance,Urine Clear (Clear); Bilirubin,Urine Negative (Negative); Blood,Urine Negative (Negative); Color,Urine Yellow; Glucose,Urine (UA) Negative (Negative); Ketones,Urine Negative (Negative); Leukocyte Esterase,Urine Negative (Negative); Nitrite,Urine Negative (Negative); PH, Urine 6.5 (5.0-8.0); Protein,Urine Negative (Negative); Specific Gravity,Urine 1.016 (1.001-1.035); Urobilinogen,Urine <2.0 mg/dL (<2.0)
--- NOTE | 2024-03-23 09:45 | XR ---
EXAMINATION TYPE: XR chest 2V DATE OF EXAM: 03/23/2024 COMPARISON: 02/05/2024 HISTORY: 59-year-old male [id number] PRE OP TECHNIQUE: Frontal and lateral views FINDINGS: The cardiomediastinal silhouette, aorta, and pulmonary vasculature are within normal limits. Mild hyp erinflation. Otherwise, lungs and pleural spaces are clear. IMPRESSION: Hyperinflation may relate to depth of inspiration or underlying emphysema. Clinically correlate. Othe rwise, no acute cardiopulmonary process.
[2024-03-23 13:26] LABS: BUN/Creat Ratio 9.55 Ratio (12.00-20.00); Blood Urea Nitrogen 10.5 mg/dL (9.0-27.0); Calcium 9.4 mg/dL (8.7-10.3); Carbon Dioxide 24.3 mmol/L (21.6-31.8); Chloride 102 mmol/L (96-109); Glucose 220 mg/dL (70-110); Potassium 4.3 mmol/L (3.5-5.5); Sodium 138 mmol/L (135-145)
[2024-03-23 14:10] LABS: Basophils # (A) 0.11 X 10*3/uL (0.00-0.10); Basophils % (A) 1.7 %; Eosinophils # (A) 0.49 X 10*3/uL (0.04-0.35); Eosinophils % (A) 7.7 %; HCT 43.6 % (39.6-50.0); HGB 14.6 g/dL (13.0-17.0); Lymphocytes # (A) 1.74 X 10*3/uL (0.90-5.00); Lymphocytes % (A) 27.3 %; MCH 32.1 pg (27.0-32.0); MCHC 33.5 g/dL (32.0-37.0); MCV 95.8 FL (80.0-97.0); Mean Platelet Volume 10.2 FL (9.5-12.2); Monocytes # (A) 0.61 X 10*3/uL (0.20-1.00); Monocytes % (A) 9.6 %; NRBC Per 100 WBC 0 X 10*3/uL (0.00-0.01); Neutrophils # (A) 3.41 X 10*3/uL (1.80-7.70); Neutrophils % (A) 53.4 %; Platelet Count 233 X 10*3/uL (140-440); RBC 4.55 X 10*6/uL (4.40-5.60); RDW 12.9 % (11.5-14.5); WBC 6.38 X 10*3/uL (4.50-10.00)
== END | disposition home or self-care (01) ==
LOC: LABPAT 08:29
PROVIDERS: ATTEND Urology
DX: Z01.818 Encounter for other preprocedural examination (principal); C61 Malignant neoplasm of prostate; I44.4 Left anterior fascicular block; R94.31 Abnormal electrocardiogram [ECG] [EKG]; R06.02 Shortness of breath
CPT/HCPCS: 36415; 71046; 80048; 81003; 85025; 86850; 86900; 86901; 87086; 93005

== ENCOUNTER 2024-03-28 09:19 | Day surgery (SDC) | payer OTHER ==
--- NOTE | 2024-03-27 20:49 | P.HPIHPCON ---
History of Present Illness H&P Date: 03/27/24 Chief Complaint: Prostate cancer This is a 59-year-old male with history of [place] 7(3+4) prostate cancer, previously on active surveillance but on repeat biopsy had progression from [place] 6 to [place] 7 prostate cancer. Discussed with him given the progression I do recommend proceeding with treatments, option of robotic radical prostatectomy versus radiation therapy was discussed with details. Risk benefit and rationale of each approach were discussed, he agreed to proceed with a robotic radical prostatectomy. Aware of the risk which includes but not limited to bleeding, infection, injury to nearby organs which includes but not limited to bladder, rectum. Discussed potential of urinary incontinence, erectile dysfunction. Discussed potential of needing additional treatments, cancer recurrence and need for postoperative surveillance. Medical complication was also discussed. He understood all the risk and agreed to proceed Consent for Procedure: I have explained the operation/procedure to the patient, including the risks, benefits, side effects, alternative therapies (including not receiving the proposed treatment or service), the likelihood of the patient achieving his/her goals, and potential recuperation problems for the procedure/sedation/analgesia, as well as any blood products, if indicated. I also explained to the patient the risks, benefits and side effects of the alternatives, as well as the risks related to not receiving the proposed procedure, care, treatment, or services. Past Medical History Past Medical History: Cancer, COPD, Osteoarthritis (OA), Prostate Disorder, Skin Disorder Additional Past Medical History / Comment(s): PSA elevated, had bx., dx. low grade prostate cancer. stage 2 emphysema. eczema like rash to right hand and right ankle- using steroid cream. recently hospitalized January 2024 for COPD and influenza A. seeing vascular Dr. Rodriguez 03/25/24 for upper arterial sonogram. History of Any Multi-Drug Resistant Organisms: None Reported Past Surgical History: No Surgical Hx Reported Additional Past Surgical History / Comment(s): colonoscopy, prostate bx, right cataracts removed Past Anesthesia/Blood Transfusion Reactions: No Reported Reaction Additional Past Anesthesia/Blood Transfusion Reaction / Comment(s): no family problems w/anesthesia Smoking Status: Current every day smoker - Past Family History Mother Family Medical History: CVA/TIA Additional Family Medical History / Comment(s): aneurysm Medications and Allergies Home Medications Medication Instructions Recorded Confirmed Type Albuterol Inhaler [Ventolin Hfa 1 - 2 puff INHALATION RT-Q6H PRN 01/24/24 03/25/24 History Inhaler] Tiotropium 2.5 Mcg/Puff [Spiriva 2 puff INHALATION RT-HS 01/24/24 03/25/24 History Respimat 2.5 Mcg] Budesonide-Formot 160-4.5 Mcg 2 puff INHALATION DAILY 03/25/24 03/25/24 History [Symbicort 160-4.5 Mcg Inhaler] Triamcinolone 0.5% Cream [Kenalog 1 applic TOPICAL BID PRN 03/25/24 03/25/24 History 0.5% Cream] Allergies Allergy/AdvReac Type Severity Reaction Status Date / Time No Known Allergies Allergy Verified 03/25/24 10:14 Surgical - Exam - General no distress, no pain - ENT normal nares, normal mucosa Assessment and Plan Assessment: OR for robotic radical prostatectomy with bilateral pelvic lymph node dissection
[~2024-03-28 09:19] MED LIST changes: -GENTAMICIN 120 MG in SODIUM CHLORIDE 0.9% 100 ML IVPB PRN; +HEPARIN SODIUM,PORCINE 5,000 UNIT/ML 1 ML VIAL SQ PRN; +HYDROmorphone 0.5 MG/0.5 ML SYRINGE IVP PRN; +LIDOCAINE 1% (10MG/ML) FOR IV START INTRADERMA PRN; +MIDAZOLAM 2 MG/2 ML VIAL IV PRN
[2024-03-28] MEDS: LACTATED RINGERS 1,000 ML IV SCH (09:49)
[2024-03-28 10:07] LABS: Glucose,Whole Blood 134 mg/dL (70-110)
[2024-03-28] MEDS: LACTATED RINGERS 1,000 ML IV ONE ×2 (10:19→13:19)
[2024-03-28] MEDS: MIDAZOLAM 2 MG/2 ML VIAL IVP ONE (10:29)
[2024-03-28] MEDS: DEXAMETHASONE SOD PHOSPHATE 4 MG/ML 1 ML VIAL IVP ONE (10:52)
[2024-03-28] MEDS: ONDANSETRON 4 MG/2 ML VIAL IVP ONE ×2 (10:52→18:14)
[2024-03-28] MEDS: HEPARIN SODIUM,PORCINE 5,000 UNIT/ML 1 ML VIAL SQ ONE (10:52)
[2024-03-28] MEDS ORDERED: LIDOCAINE 1% INJ 10MG/ML (20 ML MDV) ONE (12:06)
[2024-03-28] MEDS ORDERED: fentaNYL (PF) 50 MCG/ML 2 ML AMP ONE (12:06)
[2024-03-28] MEDS ORDERED: PHENYLEPHRINE 10 MG/ML VIAL ONE (12:06)
[2024-03-28] MEDS ORDERED: GLYCOPYRROLATE 0.2 MG/ML 2 ML VIAL ONE (12:06)
[2024-03-28] MEDS ORDERED: NEOSTIGMINE 1 MG/ML 10 ML VIAL ONE (12:06)
[2024-03-28] MEDS ORDERED: PROPOFOL 10 MG/ML 20 ML VIAL IV ONE (12:06)
[2024-03-28] MEDS ORDERED: ROCURONIUM 10 MG/ML (5 ML VIAL) IV ONE (12:06)
[2024-03-28] MEDS ORDERED: DEXAMETHASONE SOD PHOSPHATE 4 MG/ML 1 ML VIAL ONE (12:06)
[2024-03-28] MEDS ORDERED: ROPIVACAINE 5 MG/ML 30 ML VIAL ONE (12:06)
[2024-03-28] MEDS ORDERED: SUCCINYLCHOLINE CHLORIDE 200 MG/10 ML VIAL IV ONE (12:06)
[2024-03-28] MEDS ORDERED: HYDROmorphone (PF) 1 MG/ML ONE (12:06)
[2024-03-28] MEDS ORDERED: MIDAZOLAM 2 MG/2 ML VIAL ONE (12:06)
[2024-03-28] MEDS ORDERED: SODIUM CHLORIDE 0.9% (PF) 10 ML VIAL ONE (12:06)
[2024-03-28] MEDS: BUPIVACAINE (PF) 0.25% 30 ML VIAL SQ ONE ×2 (12:11→15:52)
[2024-03-28] MEDS ORDERED: ALBUTEROL NEBULIZED 2.5 MG/3 ML INHALATION PRN (12:36)
[2024-03-28] MEDS ORDERED: ONDANSETRON 4 MG/2 ML VIAL IVP PRN (12:38)
[2024-03-28] MEDS: HEPARIN SODIUM,PORCINE 5,000 UNIT/ML 1 ML VIAL SQ SCH (16:00)
[2024-03-28] MEDS: MEPERIDINE 50 MG/ML SYRINGE IVP ONE (16:24)
[2024-03-28] MEDS: DEXAMETHASONE SOD PHOSPHATE 4 MG/ML 1 ML VIAL IV ONE (17:58)
[2024-03-28] MEDS: KETOROLAC 15 MG/ML 1 ML VIAL IVP SCH (18:02)
[2024-03-28] MEDS: HYDROmorphone 1 MG/ML 1 ML SYRINGE IVP PRN (18:02)
[2024-03-28] MEDS: D5-0.45% NACL WITH KCL 20MEQ/L 1,000 ML IV SCH (18:03)
--- NOTE | 2024-03-28 20:46 | P.OP ---
Date of Procedure: 03/28/24 Preoperative Diagnosis: Prostate cancer Postoperative Diagnosis: Same Procedure(s) Performed: Robotic radical prostatectomy with bilateral pelvic lymph node dissection Implants: None Anesthesia: CAMERONA Surgeon: Vito Bustamante Estimated Blood Loss (ml): 100 Pathology: other (Prostate, bilateral seminal vesicle, bilateral pelvic lymph nodes) Condition: stable Disposition: PACU Indications for Procedure: This is a 59-year-old male with history of [place] 7(3+4) prostate cancer, previously on active surveillance but on repeat biopsy had progression from Rag[place] 6 to [place] 7 prostate cancer. Discussed with him given the progression I do recommend proceeding with treatments, option of robotic radical prostatectomy versus radiation therapy was discussed with details. Risk benefit and rationale of each approach were discussed, he agreed to proceed with a robotic radical prostatectomy. Aware of the risk which includes but not limited to bleeding, infection, injury to nearby organs which includes but not limited to bladder, rectum. Discussed potential of urinary incontinence, erectile dysfunction. Discussed potential of needing additional treatments, cancer recurrence and need for postoperative surveillance. Medical complication was also discussed. He understood all the risk and agreed to proceed Description of Procedure: After preoperative antibiotics were started, the patient was taken to the operating room. Anesthesia was induced and the patient was placed in a supine position, with adequate padding of the pressure points, shoulders, back, legs and arms. He was then prepped and draped in the standard fashion. A critical pause was performed using two patient identifiers. A 16F cortes catheter was placed to gravity drainage. A pneumo-peritoneum was created with placement of a Veress needle to 20 mm Hg without complication, and a 8 Fr trocar was placed above the umbillicus. Under direct vision a 8mm robotic ports was placed lateral to each rectus slightly below the camera port. The left iliac fossa 8mm port was placed. The right training assistant right iliac fossa 12mm port and right paramedian 5mm portwere placed. After the patient was placed in the trendelenberg position, the robot was then docked to the 8mm robotic ports and then each robotic arm and tower was checked in relation to the patient's legs and hands to avoid inadvertent compression. The peritoneal cavity was inspected. An inverted U-shaped incision began laterally to the left medial umbilical ligament and extended high across the midline to the right umbilical ligament. The limbs of the "U" extended to the level of the vasa on both sides. We next developed the preperitoneal space and the space of Retzius. Cautery was used to dissected the bladder away from the prostate. After the anterior bladder neck was incised and the bladder entered the the posterior bladder neck was exposed and the ureteral orifces identified. The posterior bladder neck was then incised and dissected away from the prostate. The vas and the seminal vesicles were now exposed and dissected to their insertions into the prostate and were not spared. The posterior layer of the Denonvillier's fascia was incised to enter jm the plane between prostate and perirectal fat. Each lateral pedicle was controlled with clips and cautery for hemostasis. Complete nerve preservation was performed on the left, partial nerve preservation was performed on the right. the puboprostatic ligament was incised where it inserted into the apex of the prostate and a plane between urethra and dorsal venous complex developed to expose the anterior urethral surface. The anterior wall of the urethra was transected with the cut setting a few millimeters distal to the apex of the prostate. The dorsal vein was ligated using 3-0 V lock bilateral obturator and external iliac lymph node packets were carefully dissected after careful visualization of the hypogastric artery and obturator nerve. There was careful attention paid to hemostasis with judicious use of cautery. The urethrovesical anastomosis was performed . the posterior denovillers was reapproximated using 3-0 V lock. A 6 and 6 inch 3-0 V-Lock suture was used to anastomose the urethra and bladder, starting at the 6:00 posterior position. Mucosa was secured in every stitch, to ensure a mucosa to mucosa anastomosis. The stitch was regularly cinched and the anastomosis tightened. Care was taken to not violate the ureteral orifices. The Cortes catheter was advanced, the bladder filled, and the anastomosis was tested, as described above. Anastomsis was watertight at 150 mL The periumbilical fascia was closed with 1-0-PDS suture in figure of eight fashion. All ports were closed with a subcuticular 4-0 monocryl and Dermabond. Sponge, instrument, and needle counts were correct at the end of the case x2. All specimens including prostate and lymph nodes were sent to pathology for diagnosis and will be available in a week. The patient tolerated the surgery well and without complication. He awoke without difficulty and was taken to the recovery room in stable condition
[2024-03-28] MEDS: IPRATROPIUM 0.5 MG/2.5 ML NEBU INHALATION SCH (21:08)
[2024-03-29 02:36] VITALS: TEMP 98.8
[2024-03-29 08:36] VITALS: BP 132/75; PULSE 87; RESP 17
[2024-03-29] MEDS: SYMBICORT 160-4.5 MCG INHALER INHALATION SCH (09:30)
--- NOTE | 2024-03-29 19:55 | P.DS ---
Providers Attending physician: Vito Bustamante MD Primary care physician: [facility] Hospital Course: This is a 59-year-old male with history of prostate cancer. He underwent a robotic radical prostatectomy on March 28. Patient was admitted to the hospital postoperatively. Please see op note dated March 28 for surgery details. Patient was discharged home on postop day #1, at time of discharge he was tolerating a diet, ambulating, pain was controlled Plan - Discharge Summary Discharge Rx Participant: Yes New Discharge Prescriptions: New Ciprofloxacin HCl [Cipro] 250 mg PO Q12HR 3 Days #6 tab Ketorolac [Toradol] 10 mg PO Q6HR PRN #15 tab PRN Reason: Pain No Action Tiotropium 2.5 Mcg/Puff [Spiriva Respimat 2.5 Mcg] 2 puff INHALATION RT-HS Albuterol Inhaler [Ventolin Hfa Inhaler] 1 - 2 puff INHALATION RT-Q6H PRN PRN Reason: Wheezing Budesonide-Formot 160-4.5 Mcg [Symbicort 160-4.5 Mcg Inhaler] 2 puff INHALATION DAILY Triamcinolone 0.5% Cream [Kenalog 0.5% Cream] 1 applic TOPICAL BID PRN PRN Reason: Rash Discharge Medication List Albuterol Inhaler [Ventolin Hfa Inhaler] 1 - 2 puff INHALATION RT-Q6H PRN 01/24/24 [History] Tiotropium 2.5 Mcg/Puff [Spiriva Respimat 2.5 Mcg] 2 puff INHALATION RT-HS 01/24/24 [History] Budesonide-Formot 160-4.5 Mcg [Symbicort 160-4.5 Mcg Inhaler] 2 puff INHALATION DAILY 03/25/24 [History] Triamcinolone 0.5% Cream [Kenalog 0.5% Cream] 1 applic TOPICAL BID PRN 03/25/24 [History] Ciprofloxacin HCl [Cipro] 250 mg PO Q12HR 3 Days #6 tab 03/29/24 [Rx] Ketorolac [Toradol] 10 mg PO Q6HR PRN #15 tab 03/29/24 [Rx] Follow up Appointment(s)/Referral(s): Vito Bustamante MD [STAFF PHYSICIAN] - 04/10/24 8:00 am Activity/Diet/Wound Care/Special Instructions: Increase fluid intake No heavy lifting or straining start you antibiotic one day prior to your follow up appointment
--- NOTE | 2024-03-30 20:07 | P.ANPRN ---
Procedure Note - Anesthesia - Nerve Block Performed Bilateral Erector Spinae Single Time Out Performed: Yes Date of Procedure: 03/28/24 Procedure Start Time: : Procedure Stop Time: :39 Location of Patient: PreOp Indication: Acute Post-Operative Pain, Requested by Surgeon Sedation Type: Sedate with meaningful contact maintained Preparation: Sterile Prep Position: Prone Needle Types: Pajunk Needle Gauge: 21 Ultrasound used to visualize needle placement: Yes Ultrasound used to observe medication spread: Yes Blood Aspirated: No Pain Paresthesia on Injection Noted: No Resistance on Injection: Normal Image Stored and Saved: Yes Events: Uneventful and Well Tolerated (Ropivacaine 0.5% 15 cc plus normal saline 10 cc plus dexamethasone 4 mg given bilaterally at L1)
== END 2024-03-29 14:12 ==
LOC: OR 09:19 → 4SSUR 15:55 → OR 03-29 14:12
PROVIDERS: ATTEND Urology
DX: C61 Malignant neoplasm of prostate (principal); J44.9 Chronic obstructive pulmonary disease, unspecified; M19.90 Unspecified osteoarthritis, unspecified site; F17.200 Nicotine dependence, unspecified, uncomplicated; J43.9 Emphysema, unspecified; Z85.46 Personal history of malignant neoplasm of prostate; Z82.3 Family history of stroke; Z79.51 Long term (current) use of inhaled steroids; Z79.899 Other long term (current) drug therapy; Z98.890 Other specified postprocedural states
CPT/HCPCS: 38571; 55866; S2900; 64999; 88307; 88309; 94640

== ENCOUNTER 2024-11-16 09:15 | Inpatient (IN) | payer BC, OTHER ==
--- NOTE | 2024-11-16 09:38 | ED ---
General Adult HPI - General Chief complaint: Shortness of Breath Stated complaint: ASIA Time Seen by Provider: 11/16/24 09:25 Source: patient, RN notes reviewed, old records reviewed Mode of arrival: ambulatory Limitations: no limitations - History of Present Illness Initial comments: This is a 59-year-old male who presents to the emergency department the past medical history significant for COPD. Patient states he continues to smoke. Patient states over the last month he has had harder and harder time breathing and throughout the night he took 4 nebulizer treatments and use his rescue inhaler at least 10 times. Patient states he is not getting better he had an upper respiratory infection he states has been coughing quite a bit and some congestion. Patient denies any fever or chills. Patient denies any chest pain. Patient denies any palpitations. Patient has abdominal pain patient has nausea vomiting or diarrhea. Patient has any back pain. Patient [place] any leg swelling or calf tenderness. - Related Data Home Medications Medication Instructions Recorded Confirmed Albuterol Inhaler [Ventolin Hfa 1 - 2 puff INHALATION RT-Q6H PRN 01/24/24 03/25/24 Inhaler] Tiotropium 2.5 Mcg/Puff [Spiriva 2 puff INHALATION RT-HS 01/24/24 03/25/24 Respimat 2.5 Mcg] Budesonide-Formot 160-4.5 Mcg 2 puff INHALATION DAILY 03/25/24 03/25/24 [Symbicort 160-4.5 Mcg Inhaler] Triamcinolone 0.5% Cream [Kenalog 1 applic TOPICAL BID PRN 03/25/24 03/25/24 0.5% Cream] Previous Rx's Medication Instructions Recorded Ciprofloxacin HCl [Cipro] 250 mg PO Q12HR 3 Days #6 tab 03/29/24 Ketorolac [Toradol] 10 mg PO Q6HR PRN #15 tab 03/29/24 Allergies Allergy/AdvReac Type Severity Reaction Status Date / Time No Known Allergies Allergy Verified 03/28/24 09:36 Review of Systems ROS Statement: Those systems with pertinent positive or pertinent negative responses have been documented in the HPI. ROS Other: All systems not noted in ROS Statement are negative. Past Medical History Past Medical History: Cancer, COPD, Osteoarthritis (OA), Prostate Disorder, Skin Disorder Additional Past Medical History / Comment(s): PSA elevated, had bx., dx. low grade prostate cancer-dr. Haji recently diagnosed 06/2022-Stage 2 emphysema. eczema like rash to hands using steroid cream. treated for bronchitis about 3 weeks ago with abx History of Any Multi-Drug Resistant Organisms: None Reported Past Surgical History: Prostate Surgery Additional Past Surgical History / Comment(s): colonscopy, prostate bx Past Anesthesia/Blood Transfusion Reactions: No Reported Reaction Additional Past Anesthesia/Blood Transfusion Reaction / Comment(s): no family problems w/anesthesia Past Psychological History: No Psychological Hx Reported Smoking Status: Current every day smoker Past Alcohol Use History: None Reported Past Drug Use History: None Reported - Past Family History Mother Family Medical History: CVA/TIA Additional Family Medical History / Comment(s): aneurysm General Exam - General Exam Comments Initial Comments: GENERAL: Patient is well-developed and well-nourished. Patient is nontoxic and well- hydrated and is in mild distress. ENT: Neck is soft and supple. No significant lymphadenopathy is noted. Oropharynx is clear. Moist mucous membranes. Neck has full range of motion without eliciting any pain. EYES: The sclera were anicteric and conjunctiva were pink and moist. Extraocular movements were intact and pupils were equal round and reactive to light. Eyelids were unremarkable. PULMONARY: Patient has diffuse expiratory wheezing CARDIOVASCULAR: There is a regular rate and rhythm without any murmurs gallops or rubs. ABDOMEN: Soft and nontender with normal bowel sounds. SKIN: Skin is clear with no lesions or rashes and otherwise unremarkable. NEUROLOGIC: Patient is alert and oriented x3. Cranial nerves II through XII are grossly intact. Motor and sensory are also intact. Normal speech, volume and content. Symmetrical smile. MUSCULOSKELETAL: Normal extremities with adequate strength and full range of motion. No lower extremity swelling or edema. No calf tenderness. LYMPHATICS: No significant lymphadenopathy is noted PSYCHIATRIC: Normal psychiatric evaluation. Limitations: no limitations Course Vital Signs 11/16/24 11/16/24 09:21 09:27 Temperature 97.9 F Pulse Rate 122 H Respiratory 18 20 Rate Blood Pressure 112/61 O2 Sat by Pulse 98 Oximetry Medical Decision Making - Medical Decision Making EKG is interpreted by myself but EKG shows a sinus tachycardia 114 bpm [place] was under 59 QRS is 92 QT interval 309 QTc is 377. Patient's EKG shows no ST segment elevation or depression. Was pt. sent in by a medical professional or institution (CHET Barrow, VP ACCOUNT DIRECTOR, urgent care, hospital, or alf...) When possible be specific @ -No Did you speak to anyone other than the patient for history (EMS, parent, family, police, friend...)? What history was obtained from this source @ -No Did you review nursing and triage notes (agree or disagree)? Why? @ -I reviewed and agree with nursing and triage notes Were old charts reviewed (outside hosp., previous admission, EMS record, old EKG, old radiological studies, urgent care reports/EKG's, alf records)? Report findings @ -No old charts were reviewed Differential Diagnosis? @ -Differential Dyspnea: Coronary syndrome, arrhythmia, tamponade, asthma, COPD, pulmonary embolism, pneumonia, pneumothorax, pulmonary effusion, anaphylaxis, diabetic ketoacidosis, flailed chest, pulmonary contusion, diaphragmatic rupture, anemia, neuromuscular, this is not meant to be an all-inclusive list. EKG interpreted by me (3pts min.). @ -As above X-rays interpreted by me (1pt min.). @ -Chest x-ray shows no acute normality CT interpreted by me (1pt min.). @ -None done U/S interpreted by me (1pt. min.). @ -None done What testing was considered but not performed or refused? (CT, X-rays, U/S, labs)? Why? @ -None What meds were considered but not given or refused? Why? @ -None Did you discuss the management of the patient with other professionals (professionals i.e. CHET Barrow, VP ACCOUNT DIRECTOR, lab, RT, psych nurse, group social worker, drapery examiner, teacher, environmental conservation officer, case reviewer)? Give summary @ -[facility] admit the patient wrote admitting orders Was smoking cessation discussed for >3mins.? @ -No Was critical care preformed (if so, how long)? @ -No Were there social determinants of health that impacted care today? How? (Homelessness, low income, unemployed, alcoholism, drug addiction, transportation, low edu. Level, literacy, decrease access to med. care, halfway, rehab)? @ -No Was there de-escalation of care discussed even if they declined (Discuss DNR or withdrawal of care, Hospice)? DNR status @ -No What co-morbidities impacted this encounter? (DM, HTN, Smoking, COPD, CAD, Cancer, CVA, ARF, Chemo, Hep., AIDS, mental health diagnosis, sleep apnea, morbid obesity)? @ -None Was patient admitted / discharged? Hospital course, mention meds given and route, prescriptions, significant lab abnormalities, going to OR and other pe rtinent info. @ -Patient received Solu-Medrol Rocephin and albuterol in the emergency department patient will be admitted for a COPD exacerbation. Lab work is normal patient has no COVID or influenza. Patient has no pneumonia. Undiagnosed new problem with uncertain prognosis? @ -No Drug Therapy requiring intensive monitoring for toxicity (Heparin, Nitro, Insulin, Cardizem)? @ -No Were any procedures done? @ -No Diagnosis/symptom? @ -COPD exacerbation Acute, or Chronic, or Acute on Chronic? @ -Acute Uncomplicated (without systemic symptoms) or Complicated (systemic symptoms)? @ -Complicated Side effects of treatment? @ -No Exacerbation, Progression, or Severe Exacerbation? @ -No Poses a threat to life or bodily function? How? (Chest pain, [place], [place], pneumonia, PE, COPD, DKA, ARF, appy, cholecystitis, CVA, Diverticulitis, Homicidal, Suicidal, threat to staff... and all critical care pts) @ -Yes this can lead to hypoxia and endorgan dysfunction - Lab Data Result diagrams: 11/16/24 10:00 11/16/24 10:00 Lab Results 11/16/24 11/16/24 11/16/24 Range/Units 10:00 10:00 10:00 WBC 8.5 (3.8-10.6) k/uL RBC 4.63 (4.30-5.90) m/uL Hgb 14.7 (13.0-17.5) gm/dL Hct 44.8 (39.0-53.0) % MCV 96.6 (80.0-100.0) fL MCH 31.6 (25.0-35.0) pg MCHC 32.7 (31.0-37.0) g/dL RDW 12.5 (11.5-15.5) % Plt Count 269 (150-450) k/uL MPV 7.2 Neutrophils % 72 % Lymphocytes % 14 % Monocytes % 6 % Eosinophils % 6 % Basophils % 1 % Neutrophils # 6.2 (1.3-7.7) k/uL Lymphocytes # 1.2 (1.0-4.8) k/uL Monocytes # 0.5 (0-1.0) k/uL Eosinophils # 0.5 (0-0.7) k/uL Basophils # 0.1 (0-0.2) k/uL PT 11.1 (10.0-12.5) sec INR 1.0 (<1.2) APTT 25.4 (22.0-30.0) sec Sodium 137 (137-145) mmol/L Potassium 4.4 (3.5-5.1) mmol/L Chloride 107 (98-107) mmol/L Carbon Dioxide 25 (22-30) mmol/L Anion Gap 5 mmol/L BUN 14 (9-20) mg/dL Creatinine 0.95 (0.66-1.25) mg/dL Est GFR (CKD-EPI)AfAm >90 (>60 ml/min/1.73 sqM) Est GFR (CKD-EPI)NonAf 88 (>60 ml/min/1.73 sqM) Glucose 136 H (74-99) mg/dL Plasma Lactic Acid Isael (0.7-2.0) mmol/L Calcium 9.1 (8.4-10.2) mg/dL Magnesium 1.9 (1.6-2.3) mg/dL Total Bilirubin 0.6 (0.2-1.3) mg/dL AST 25 (17-59) U/L ALT 16 (4-49) U/L Alkaline Phosphatase 75 (38-126) U/L Troponin I (0.000-0.034) ng/mL Total Protein 6.4 (6.3-8.2) g/dL Albumin 4.1 (3.5-5.0) g/dL Influenza Type A (PCR) (Not Detectd) Influenza Type B (PCR) (Not Detectd) RSV (PCR) (Not Detectd) SARS-CoV-2 (PCR) (Not Detectd) 11/16/24 11/16/24 11/16/24 Range/Units 10:00 10:00 10:00 WBC (3.8-10.6) k/uL RBC (4.30-5.90) m/uL Hgb (13.0-17.5) gm/dL Hct (39.0-53.0) % MCV (80.0-100.0) fL MCH (25.0-35.0) pg MCHC (31.0-37.0) g/dL RDW (11.5-15.5) % Plt Count (150-450) k/uL MPV Neutrophils % % Lymphocytes % % Monocytes % % Eosinophils % % Basophils % % Neutrophils # (1.3-7.7) k/uL Lymphocytes # (1.0-4.8) k/uL Monocytes # (0-1.0) k/uL Eosinophils # (0-0.7) k/uL Basophils # (0-0.2) k/uL PT (10.0-12.5) sec INR (<1.2) APTT (22.0-30.0) sec Sodium (137-145) mmol/L Potassium (3.5-5.1) mmol/L Chloride (98-107) mmol/L Carbon Dioxide (22-30) mmol/L Anion Gap mmol/L BUN (9-20) mg/dL Creatinine (0.66-1.25) mg/dL Est GFR (CKD-EPI)AfAm (>60 ml/min/1.73 sqM) Est GFR (CKD-EPI)NonAf (>60 ml/min/1.73 sqM) Glucose (74-99) mg/dL Plasma Lactic Acid Isael 1.0 (0.7-2.0) mmol/L Calcium (8.4-10.2) mg/dL Magnesium (1.6-2.3) mg/dL Total Bilirubin (0.2-1.3) mg/dL AST (17-59) U/L ALT (4-49) U/L Alkaline Phosphatase (38-126) U/L Troponin I <0.012 (0.000-0.034) ng/mL Total Protein (6.3-8.2) g/dL Albumin (3.5-5.0) g/dL Influenza Type A (PCR) Not Detected (Not Detectd) Influenza Type B (PCR) Not Detected (Not Detectd) RSV (PCR) Not Detected (Not Detectd) SARS-CoV-2 (PCR) Not Detected (Not Detectd) Disposition Clinical Impression: COPD exacerbation Disposition: ADMITTED IP TO THIS HOSP Referrals: Giulia Lopez, PAC [Primary Care Provider] - 1-2 days Time of Disposition: 10:56
--- NOTE | 2024-11-16 10:07 | XR ---
EXAMINATION TYPE: XR chest 2V DATE OF EXAM: 11/16/2024 10:01 AM COMPARISON: Chest x-ray March 23, 2024 CLINICAL INDICATION: Male, 59 years old with history of difficulty breathing, TECHNIQUE: Frontal and lateral views of the chest are obtained. FINDINGS: Underlying emphysematous change is felt present. There is no suspicious new focal air space opacity, pleural effusion, or pneumothorax seen. The cardiac silhouette size remains within normal limits. The osseous structures are intact. IMPRESSION: No acute cardiopulmonary process. No significant change from most recent prior. [facility], , 11/16/2024 10:04 AM
[2024-11-16 10:14] LABS: Basophils # (A) 0.1 k/uL (0-0.2); Basophils % (A) 1 %; Eosinophils # (A) 0.5 k/uL (0-0.7); Eosinophils % (A) 6 %; HCT 44.8 % (39.0-53.0); HGB 14.7 gm/dL (13.0-17.5); Lymphocytes # (A) 1.2 k/uL (1.0-4.8); Lymphocytes % (A) 14 %; MCH 31.6 pg (25.0-35.0); MCHC 32.7 g/dL (31.0-37.0); MCV 96.6 fL (80.0-100.0); Mean Platelet Volume 7.2; Monocytes # (A) 0.5 k/uL (0-1.0); Monocytes % (A) 6 %; Neutrophils # (A) 6.2 k/uL (1.3-7.7); Neutrophils % (A) 72 %; Platelet Count 269 k/uL (150-450); RBC 4.63 m/uL (4.30-5.90); RDW 12.5 % (11.5-15.5); WBC 8.5 k/uL (3.8-10.6)
[2024-11-16] MEDS: SODIUM CHLORIDE 0.9% 500 ML 500 ML IV STA (10:15)
[2024-11-16] MEDS: methylPREDNISolone SOD SUCCI 125 MG/2 ML VIAL IV STA (10:15)
[2024-11-16] MEDS: cefTRIAXone IN SWFI 1,000 MG/10 ML SYRINGE IVP STA (10:17)
[2024-11-16 10:29] LABS: ALT 16 U/L (4-49); African American GFR (CKD) >90 (>60 ml/min/1.73 sqM); Albumin 4.1 g/dL (3.5-5.0); Anion Gap 5 mmol/L; Blood Urea Nitrogen 14 mg/dL (9-20); Calcium 9.1 mg/dL (8.4-10.2); Carbon Dioxide 25 mmol/L (22-30); Chloride 107 mmol/L (98-107); Glucose 136 mg/dL (74-99); Non-African American GFR(CKD) 88 (>60 ml/min/1.73 sqM); Sodium 137 mmol/L (137-145); Total Bilirubin 0.6 mg/dL (0.2-1.3); Total Protein 6.4 g/dL (6.3-8.2)
[2024-11-16 10:32] LABS: AST 25 U/L (17-59); Alkaline Phosphatase 75 U/L (38-126); Magnesium 1.9 mg/dL (1.6-2.3); Potassium 4.4 mmol/L (3.5-5.1)
[2024-11-16 10:33] LABS: Partial Thromboplastin Time 25.4 sec (22.0-30.0); Prothrombin Time 11.1 sec (10.0-12.5)
[2024-11-16] MEDS ORDERED: NALOXONE 0.4 MG/ML 1 ML VIAL IVP PRN (10:56)
[2024-11-16] MEDS: IPRATROPIUM-ALBUTEROL 3 ML NEB INHALATION STA (11:04)
[2024-11-16] MEDS: IPRATROPIUM-ALBUTEROL 3 ML NEB INHALATION SCH (11:06)
[2024-11-16] MEDS: methylPREDNISolone SOD SUCCI 125 MG/2 ML VIAL IV SCH (12:16)
--- NOTE | 2024-11-16 15:43 | P.HPIM ---
History of Present Illness H&P Date: 11/16/24 History of present illness; patient 59-year-old gentleman with past medical history significant for COPD, tobacco addiction who presented to the ER because of shortness of breath. Patient said for the last 1 week he has been having worsening shortness of breath. Shortness of breath was on rest as on exertion. Patient also complaining of productive cough. Denies any fever or chills. There is no complaint of chest pain. Patient denies any nausea, vomiting abdominal pain. There is no complaint of orthopnea or PND. Because this worsening shortness of breath, patient brought to the ER Initial lab work done in the ER showed WBC 8.5, hemoglobin 14.7, platelet count 269, sodium 137, potassium 4.4, BUN 14, creatinine 0.95, glucose 136, lactate 1, troponin 0.012 Influenza A not detected Influenza B not detected RSV not detected COVID-19 not detected EKG done in the ER showed heart rate of , no ST segment elevation or depression seen, no T-wave inversions seen. Chest x-ray done in the ER showed no acute cardiopulmonary process Patient admitted to internal medicine service REVIEW OF SYSTEMS: CONSTITUTIONAL: No fever, no malaise, no fatigue. HEENT: No recent visual problems or hearing problems. Denied any sore throat. CARDIOVASCULAR: As mentioned above PULMONARY: As mentioned GASTROINTESTINAL: No diarrhea, no nausea, no vomiting, no abdominal pain. NEUROLOGICAL: No headaches, no weakness, no numbness. HEMATOLOGICAL: Denies any bleeding or petechiae. GENITOURINARY: Denies any burning micturition, frequency, or urgency. MUSCULOSKELETAL/RHEUMATOLOGICAL: Denies any joint pain, swelling, or any muscle pain. ENDOCRINE: Denies any polyuria or polydipsia. The rest of the 14-point review of systems is negative. PHYSICAL EXAMINATION: GENERAL: The patient is alert and oriented x3, not in any acute distress. Well developed, well nourished. HEENT: Pupils are round and equally reacting to light. EOMI. No scleral icterus. No conjunctival pallor. Normocephalic, atraumatic. No pharyngeal erythema. No thyromegaly. CARDIOVASCULAR: S1 and S2 present. No murmurs, rubs, or gallops. PULMONARY: Coarse breath sound bilaterally, expiratory wheeze audible, no crackles ABDOMEN: Soft, nontender, nondistended, normoactive bowel sounds. No palpable organomegaly. MUSCULOSKELETAL: No joint swelling or deformity. EXTREMITIES: No cyanosis, clubbing, or pedal edema. NEUROLOGICAL: Gross neurological examination did not reveal any focal deficits. SKIN: No rashes. Assessment and plan Acute COPD exacerbation Acute hypoxemic respiratory failure Tobacco addiction Monitor vital signs Monitor CBC Monitor CMP Continue telemetry monitoring Ordered IV Solu-Medrol Ordered breathing treatments Counseled patient in detail regarding need for him to quit smoking Ordered Mucinex and Atul Garcia Consult pulmonary Labs and medication were reviewed.. Continue same treatment. Continue with symptomatic treatment. Resume home medication. Monitor labs and vitals. DVT and GI prophylaxis. Further recommendations as per clinical course of the patient Dictation was produced using [employer] dictation software. please excuse any grammatical, word or spelling errors. Past Medical History Past Medical History: Cancer, COPD, Osteoarthritis (OA), Prostate Disorder, Skin Disorder Additional Past Medical History / Comment(s): PSA elevated, had bx., dx. low grade prostate cancer- Pt recently diagnosed 06/2022-Stage 2 emphysema. eczema like rash to hands using steroid cream. treated for bronchitis about 3 weeks ago with abx History of Any Multi-Drug Resistant Organisms: None Reported Past Surgical History: Prostate Surgery Additional Past Surgical History / Comment(s): colonscopy, prostate bx Past Anesthesia/Blood Transfusion Reactions: No Reported Reaction Additional Past Anesthesia/Blood Transfusion Reaction / Comment(s): no family problems w/anesthesia Past Psychological History: No Psychological Hx Reported Smoking Status: Current every day smoker Past Alcohol Use History: None Reported Past Drug Use History: None Reported - Past Family History Mother Family Medical History: CVA/TIA Additional Family Medical History / Comment(s): aneurysm Medications and Allergies Home Medications Medication Instructions Recorded Confirmed Type Albuterol Inhaler [Ventolin Hfa 2 puff INHALATION RT-Q4H PRN 01/24/24 11/16/24 History Inhaler] Tiotropium 2.5 Mcg/Puff [Spiriva 2 puff INHALATION RT-DAILY 01/24/24 11/16/24 History Respimat 2.5 Mcg] Ipratropium-Albuterol Nebulize 3 ml INHALATION RT-TID PRN 11/16/24 11/16/24 History [Duoneb 0.5 mg-3 mg/3 ml Soln] guaiFENesin-DM 600/30MG [Mucinex 1 tab PO TID 11/16/24 11/16/24 History Dm] Allergies Allergy/AdvReac Type Severity Reaction Status Date / Time egg AdvReac Nausea & Verified 11/16/24 11:15 Vomiting & Diarrhea Physical Exam Vitals: Vital Signs Temp Pulse Resp BP Pulse Ox 11/16/24 15:27 118 H 20 117/75 96 11/16/24 14:57 115 H 11/16/24 14:49 112 H 11/16/24 12:19 116 H 18 135/74 95 11/16/24 11:14 102 H 11/16/24 11:06 109 H 11/16/24 09:27 20 11/16/24 09:21 97.9 F 122 H 18 112/61 98 Intake and Output 11/16/24 11/16/24 11/16/24 06:59 14:59 22:59 Other: Weight 83.915 kg Results CBC & Chem 7: 11/16/24 10:00 11/16/24 10:00 Labs: Abnormal Lab Results - Last 24 Hours (Table) 11/16/24 Range/Units 10:00 Glucose 136 H (74-99) mg/dL
[2024-11-16] MEDS ORDERED: guaiFENesin-DM 600/30MG 1 EACH TAB.ER.12H PO SCH (16:00)
[2024-11-16] MEDS: BENZONATATE 100 MG CAP PO PRN (18:28)
[2024-11-16] MEDS: AMOXIC-POT CLAV 875-125MG 1 EACH TAB PO SCH (20:09)
[2024-11-16] MEDS: guaiFENesin 600 MG TABLET.ER PO SCH (20:10)
[2024-11-17] MEDS: IPRATROPIUM-ALBUTEROL 3 ML NEB INHALATION PRN (00:17)
--- NOTE | 2024-11-17 07:55 | P.CNPUL ---
History of Present Illness Consult date: 11/17/24 Requesting physician: Elsie Grace Reason for consult: dyspnea, cough, COPD Chief complaint: Shortness of breath. History of present illness: Pulmonary consult dated November 17, 2024. 59-year-old male with history of moderate COPD. His FEV1 is 60% of predicted. The patient presents to the emergency department, with increasing shortness of breath. I see the patient in the office, for his COPD. Anyway, in addition to shortness of breath, the patient had cough, and wheezing. The patient is admitted with a diagnosis of COPD exacerbation. His chest x-ray does not show anything acute. He does have a history of prostate cancer, and ongoing tobacco use. The patient is currently on DuoNebs, Solu-Medrol, and we add Symbicort. In addition, he was given some Augmentin in the emergency department. A procalcitonin level is pending. Current labs include a white count 8.5, hemoglobin 14.7, hematocrit 44.8, and a normal platelet count. Coagulation studies are normal. Sodium 137, potassium 4.4, chlorides 107, CO2 25, BUN 14, creatinine 0.95. Glucose is 136. Viral screen was negative. Review of Systems REVIEW OF SYSTEMS: CONSTITUTIONAL: [Negative.] NEUROLOGIC: [ Negative.] HEENT: [ Negative.] CARDIAC: [Negative.] PULMONARY: Shortness of breath, cough, wheezing. GI: [Negative.] : [Negative.] RHEUMATOLOGIC: [ Negative.] IMMUNOLOGIC: [ Negative.] ENDOCRINE: [Negative. ] DERMATOLOGIC: [Negative.] Past Medical History Past Medical History: Cancer, COPD, Osteoarthritis (OA), Prostate Disorder, Skin Disorder Additional Past Medical History / Comment(s): PSA elevated, had bx., dx. low grade prostate cancer-dr. Haji recently diagnosed 06/2022-Stage 2 emphysema. eczema like rash to hands using steroid cream. treated for bronchitis about 3 weeks ago with abx History of Any Multi-Drug Resistant Organisms: None Reported Past Surgical History: Prostate Surgery Additional Past Surgical History / Comment(s): colonscopy, prostate bx Past Anesthesia/Blood Transfusion Reactions: No Reported Reaction Additional Past Anesthesia/Blood Transfusion Reaction / Comment(s): no family problems w/anesthesia Past Psychological History: No Psychological Hx Reported Smoking Status: Current every day smoker Past Alcohol Use History: None Reported Past Drug Use History: None Reported - Past Family History Mother Family Medical History: CVA/TIA Additional Family Medical History / Comment(s): aneurysm Medications and Allergies Home Medications Medication Instructions Recorded Confirmed Type Albuterol Inhaler [Ventolin Hfa 2 puff INHALATION RT-Q4H PRN 01/24/24 11/16/24 History Inhaler] Tiotropium 2.5 Mcg/Puff [Spiriva 2 puff INHALATION RT-DAILY 01/24/24 11/16/24 History Respimat 2.5 Mcg] Ipratropium-Albuterol Nebulize 3 ml INHALATION RT-TID PRN 11/16/24 11/16/24 History [Duoneb 0.5 mg-3 mg/3 ml Soln] guaiFENesin-DM 600/30MG [Mucinex 1 tab PO TID 11/16/24 11/16/24 History Dm] Allergies Allergy/AdvReac Type Severity Reaction Status Date / Time egg AdvReac Nausea & Verified 11/16/24 11:15 Vomiting & Diarrhea Physical Exam Osteopathic Statement: *. No significant issues noted on an osteopathic structural exam other than those noted in the History and Physical/Consult. Vitals: Vital Signs Temp Pulse Pulse Resp BP BP Pulse Ox 11/17/24 06:31 94 L 11/17/24 01:40 98.2 F 85 18 119/48 100 11/17/24 00:28 104 H 11/17/24 00:17 100 11/16/24 20:25 111 H 11/16/24 20:15 118 H 11/16/24 19:37 98.0 F 114 H 18 115/69 94 L 11/16/24 15:52 98.3 F 123 H 20 147/68 94 L 11/16/24 15:42 118 H 20 126/78 95 11/16/24 15:27 118 H 20 117/75 96 11/16/24 14:57 115 H 11/16/24 14:49 112 H 11/16/24 12:19 116 H 18 135/74 95 11/16/24 11:14 102 H 11/16/24 11:06 109 H 11/16/24 09:27 20 11/16/24 09:21 97.9 F 122 H 18 112/61 98 Intake and Output 0111/17/24 11/17/24 22:59 06:59 14:59 Output Total 300 Balance -300 Output: Urine 300 Other: Voiding Method Urinal # Voids 2 No acute distress, oriented 3. Currently on 3 L. HEENT examination is grossly unremarkable. Mucous membranes are moist. No oral lesions. Neck supple. Full range of motion. No adenopathy thyromegaly or neck vein distention. Cardiovascular examination reveals regular rhythm rate. S1-S2 normal. No S3 or S4. No discernible murmur noted. Lungs reveal inspiratory and expiratory wheezes. No rhonchi or crackles. Breath sounds equal bilaterally. Abdomen soft bowel sounds are heard. No masses or tenderness. Extremities are intact. No cyanosis clubbing or edema. Skin is without rash or lesion. Neurologic examination is brief but nonfocal. Results - Laboratory Findings CBC and BMP: 11/16/24 10:00 11/16/24 10:00 PT/INR, D-dimer PT 11.1 sec (10.0-12.5) 11/16/24 10:00 INR 1.0 (<1.2) 11/16/24 10:00 Abnormal lab findings: Abnormal Labs 11/16/24 10:00 Glucose 136 H - Diagnostic Findings Chest x-ray: image reviewed Assessment and Plan Assessment: Acute hypoxemic respiratory failure secondary to acute exacerbation of COPD. History of moderate COPD with an FEV1 that 60% of predicted. History of ongoing tobacco use with nicotine addiction. History of prostate cancer. History of degenerative joint disease. History of eczema. Plan: Plan dated November 17, 2024. The patient is seen today in room 631. He is currently on 3 L of oxygen. He is not receiving any IV fluids. His FEV1 is 60% of predicted. He was admitted with a COPD exacerbation. We add Symbicort to his DuoNebs, and Solu-Medrol. The patient received Augmentin in the emergency department. A procalcitonin level was pending. He denies any fever or chills. He is not coughing up any purulent phlegm. If the procalcitonin level is normal, I would just continue the Augmentin. Labs, x-rays, and all medications are reviewed. The patient needs to follow-up with me after discharge. He is counseled about the importance of smoking cessation. Time with Patient: Greater than 30
[2024-11-17 07:56] LABS: Basophils % (A) 0 %; Eosinophils % (A) 0 %; HCT 41.9 % (39.0-53.0); HGB 13.6 gm/dL (13.0-17.5); Lymphocytes # (A) 0.8 k/uL (1.0-4.8); Lymphocytes % (A) 5 %; MCH 31.1 pg (25.0-35.0); MCHC 32.4 g/dL (31.0-37.0); MCV 96.2 fL (80.0-100.0); Mean Platelet Volume 8.3; Monocytes # (A) 0.5 k/uL (0-1.0); Monocytes % (A) 3 %; Neutrophils # (A) 15.6 k/uL (1.3-7.7); Neutrophils % (A) 92 %; Platelet Count 262 k/uL (150-450); RBC 4.35 m/uL (4.30-5.90); RDW 13.1 % (11.5-15.5)
[2024-11-17] MEDS ORDERED: NON FORMULARY DRUG (Tiotropium 2.5 Mcg/Puff 10 PUFF Each) INHALATION SCH (08:00)
[2024-11-17 08:18] LABS: ALT 16 U/L (4-49); AST 20 U/L (17-59); African American GFR (CKD) 90 (>60 ml/min/1.73 sqM); Albumin/Globulin Ratio 1.8; Alkaline Phosphatase 80 U/L (38-126); Anion Gap 8 mmol/L; Blood Urea Nitrogen 22 mg/dL (9-20); Calcium 9.3 mg/dL (8.4-10.2); Carbon Dioxide 24 mmol/L (22-30); Chloride 104 mmol/L (98-107); Globulin 2.2 g/dL; Glucose 186 mg/dL (74-99); Non-African American GFR(CKD) 78 (>60 ml/min/1.73 sqM); Sodium 136 mmol/L (137-145); Total Bilirubin 0.4 mg/dL (0.2-1.3); Total Protein 6.2 g/dL (6.3-8.2)
[2024-11-17] MEDS: SYMBICORT 160-4.5 MCG INHALER INHALATION SCH (08:47)
--- NOTE | 2024-11-17 13:18 | P.PN ---
Subjective Progress Note Date: 11/17/24 patient 59-year-old gentleman with past medical history significant for COPD, tobacco addiction who presented to the ER because of shortness of breath. Patient said for the last 1 week he has been having worsening shortness of breath. Shortness of breath was on rest as on exertion. Patient also complain ing of productive cough. Denies any fever or chills. There is no complaint of chest pain. Patient denies any nausea, vomiting abdominal pain. There is no complaint of orthopnea or PND. Because this worsening shortness of breath, patient brought to the ER Initial lab work done in the ER showed WBC 8.5, hemoglobin 14.7, platelet count 269, sodium 137, potassium 4.4, BUN 14, creatinine 0.95, glucose 136, lactate 1, troponin 0.012 Influenza A not detected Influenza B not detected RSV not detected COVID-19 not detected EKG done in the ER showed heart rate of , no ST segment elevation or depression seen, no T-wave inversions seen. Chest x-ray done in the ER showed no acute cardiopulmonary process Patient admitted to internal medicine service 11/17. Patient seen and examined. Still complaining of wheezing. Gets short of breath on exertion. REVIEW OF SYSTEMS: CONSTITUTIONAL: No fever, no malaise,. CARDIOVASCULAR: No chest pain, no palpitations, no syncope. PULMONARY: No shortness of breath, no cough, GASTROINTESTINAL: No diarrhea, no nausea, no vomiting, no abdominal pain. NEUROLOGICAL: No headaches, no weakness, PHYSICAL EXAMINATION: GENERAL: The patient is alert and oriented x3, not in any acute distress. Well developed, well nourished. HEENT: Pupils are round and equally reacting to light. EOMI. No scleral icterus. No conjunctival pallor. Normocephalic, atraumatic. No pharyngeal erythema. No thyromegaly. CARDIOVASCULAR: S1 and S2 present. No murmurs, rubs, or gallops. PULMONARY: Coarse breath sound bilaterally, expiratory wheeze audible, no crackles ABDOMEN: Soft, nontender, nondistended, normoactive bowel sounds. No palpable organomegaly. MUSCULOSKELETAL: No joint swelling or deformity. EXTREMITIES: No cyanosis, clubbing, or pedal edema. NEUROLOGICAL: Gross neurological examination did not reveal any focal deficits. SKIN: No rashes. Assessment and plan Acute COPD exacerbation Acute hypoxemic respiratory failure Tobacco addiction Monitor vital signs Monitor CBC Monitor CMP Continue oxygen supplementation Continue breathing treatment Continue IV Solu-Medrol Continue Augmentin Patient counseled regarding smoking cessation Pulmonology following Labs and medication were reviewed.. Continue same treatment. Continue with symptomatic treatment. Resume home medication. Monitor labs and vitals. DVT and GI prophylaxis. Further recommendations as per clinical course of the patient Dictation was produced using [employer] dictation software. please excuse any grammatical, word or spelling errors. Objective - Vital Signs Vital signs: Vital Signs Temp 98.4 F 11/17/24 07:10 Pulse 104 H 11/17/24 12:02 Resp 18 11/17/24 08:00 BP 118/69 11/17/24 07:10 Pulse Ox 94 L 11/17/24 07:30 FiO2 Intake & Output 11/16/24 11/17/24 11/17/24 18:59 06:59 18:59 Intake Total 240 Output Total 300 Balance -300 240 Weight 83.915 kg Intake: Oral 240 Output: Urine 300 Other: Voiding Method Urinal Urinal # Voids 2 - Labs CBC & Chem 7: 11/17/24 06:55 11/17/24 06:55 Labs: Abnormal Lab Results - Last 24 Hours (Table) 11/17/24 11/17/24 Range/Units 06:55 06:55 WBC 17.0 H (3.8-10.6) k/uL Neutrophils # 15.6 H (1.3-7.7) k/uL Lymphocytes # 0.8 L (1.0-4.8) k/uL Sodium 136 L (137-145) mmol/L BUN 22 H (9-20) mg/dL Glucose 186 H (74-99) mg/dL Total Protein 6.2 L (6.3-8.2) g/dL
[2024-11-18] MEDS ORDERED: DEXTROSE 50% SYRINGE 50 ML IVP PRN ×2 (15:20)
--- NOTE | 2024-11-18 15:30 | P.PN ---
Subjective Progress Note Date: 11/18/24 This is a 59-year-old gentleman admitted with acute COPD exacerbation. Maintained on nebulized bronchodilators, IV steroids, Symbicort and Augmentin. Procalcitonin normal, 0.03, viral studies negative. Reports exertional shortness of breath. Maintaining O2 sats in the 90s on 3 L nasal cannula. Afebrile. Creatinine mildly increased, 1.06. Objective - Vital Signs Vital signs: Vital Signs Temp 97.3 F L 11/18/24 07:00 Pulse 96 11/18/24 13:15 Resp 15 11/18/24 07:00 BP 116/68 11/18/24 07:00 Pulse Ox 94 L 11/18/24 07:00 FiO2 Intake & Output 11/17/24 11/18/24 11/18/24 18:59 06:59 18:59 Intake Total 358 Output Total 100 Balance 258 Intake: Oral 358 Output: Urine 100 Other: Voiding Method Urinal # Voids 1 - Exam GENERAL: Alert and oriented x3, sitting up in bed, no acute distress. HEENT: Normocephalic, atraumatic, pupils are round and equally reacting to light. EOMI. No scleral icterus. No conjunctival pallor. CARDIOVASCULAR: S1 and S2 present. No murmurs, rubs, or gallops. PULMONARY: Unlabored, equal air entry, coarse with rhonchi scattered throughout accompanied by expiratory wheezing ABDOMEN: Soft, nontender, nondistended, normoactive bowel sounds. No palpable organomegaly appreciated. EXTREMITIES: No cyanosis, clubbing, or pedal edema. NEUROLOGICAL: Gross neurological examination did not reveal any focal deficits. SKIN: Warm and dry ,no rashes. - Labs CBC & Chem 7: 11/17/24 06:55 11/17/24 06:55 Assessment and Plan Assessment: Acute COPD exacerbation Acute hypoxic respiratory failure, secondary to the above , does not wear O2 at home. Nicotine dependence Degenerative joint disease Plan: Continue on current medication regimen ,monitoring and symptomatic treatment. Maintain nebulized bronchodilators, steroids and Symbicort. Increase activity as tolerated. Smoking cessation reinforced. Pulmonary following. The impression and plan of care has been dictated as directed. : I performed a history and examination of this patient, discussed the same with the dictator. I agree with the dictator's note ,documented as a scribe. Any additional findings or plans will be noted.
[2024-11-18 17:42] LABS: Glucose,Whole Blood 403 mg/dL (70-110)
[2024-11-18] MEDS: INSULIN ASPART (NovoLOG) 100 UNIT/ML VIAL SQ SCH (18:36)
--- NOTE | 2024-11-18 18:53 | P.PN ---
Subjective Progress Note Date: 11/18/24 59-year-old male with history of moderate COPD. His FEV1 is 60% of predicted. The patient presents to the emergency department, with increasing shortness of breath. I see the patient in the office, for his COPD. Anyway, in addition to shortness of breath, the patient had cough, and wheezing. The patient is admitted with a diagnosis of COPD exacerbation. His chest x-ray does not show anything acute. He does have a history of prostate cancer, and ongoing tobacco use. The patient is currently on DuoNebs, Solu-Medrol, and we add Symbicort. In addition, he was given some Augmentin in the emergency department. A procalcitonin level is pending. Current labs include a white count 8.5, hemoglo bin 14.7, hematocrit 44.8, and a normal platelet count. Coagulation studies are normal. Sodium 137, potassium 4.4, chlorides 107, CO2 25, BUN 14, creatinine 0.95. Glucose is 136. Viral screen was negative. On 11/18/2023, the patient is being seen for a follow-up. Doing well. Less bronchospastic and wheezy compared to yesterday. Denies having any new complaints. The patient is known to have moderately severe COPD with an FEV1 of 60% of predicted. He presented to us with acute cough and congestion and chest tightness and wheezing consistent with COPD exacerbation. He remains on Symbico rt. He remains on DuoNeb nebulized treatments and IV Solu-Medrol. Viral screen has been negative. Labs from yesterday were noted. No new labs are available from today. The patient has developed some hyperglycemia related to systemic steroids and the patient is currently on IV Solu-Medrol 60 mg every 6 hours. Will need to be placed on insulin sliding scale coverage. Patient is on Augmentin as a broad-spectrum antibiotic coverage. Chest x-ray from 11/16/2024 shows no acute cardiopulmonary process. Objective - Vital Signs Vital signs: Vital Signs Temp 97.3 F L 11/18/24 07:00 Pulse 96 11/18/24 13:15 Resp 15 11/18/24 07:00 BP 116/68 11/18/24 07:00 Pulse Ox 94 L 11/18/24 07:00 FiO2 Intake & Output 11/17/24 11/18/24 11/18/24 18:59 06:59 18:59 Intake Total 358 Output Total 100 Balance 258 Intake: Oral 358 Output: Urine 100 Other: Voiding Method Urinal # Voids 1 - Exam No acute distress, oriented 3. Currently on 3 L. HEENT examination is grossly unremarkable. Mucous membranes are moist. No oral lesions. Neck supple. Full range of motion. No adenopathy thyromegaly or neck vein distention. Cardiovascular examination reveals regular rhythm rate. S1-S2 normal. No S3 or S4. No discernible murmur noted. Lungs reveal inspiratory and expiratory wheezes. No rhonchi or crackles. Breath sounds equal bilaterally. Abdomen soft bowel sounds are heard. No masses or tenderness. Extremities are intact. No cyanosis clubbing or edema. Skin is without rash or lesion. Neurologic examination is brief but nonfocal. - Labs CBC & Chem 7: 11/17/24 06:55 11/17/24 06:55 Assessment and Plan Plan: Acute hypoxemic respiratory failure secondary to acute exacerbation of COPD. History of moderate COPD with an FEV1 that 60% of predicted. History of ongoing tobacco use with nicotine addiction. History of prostate cancer. History of degenerative joint disease. History of eczema. Plan Continue titrating the oxygen flow to maintain saturation above 90% Symbicort as maintenance IV Solu-Medrol 60 mg every 6 hours Insulin sliding scale coverage for blood sugar control Monitor blood sugars Clinically stable Chest x-ray is normal Viral screen has been negative Will continue to follow Smoking cessation counseling has been done.
[2024-11-18 21:17] LABS: Glucose,Whole Blood 306 mg/dL (70-110)
[2024-11-18] MEDS: INSULIN DETEMIR (LEVEMIR) 100 UNIT/ML SYR SQ ONE (21:22)
[2024-11-19 06:21] LABS: Glucose,Whole Blood 212 mg/dL (70-110)
[2024-11-19] MEDS: INSULIN DETEMIR (LEVEMIR) 100 UNIT/ML SYR SQ SCH (09:27)
--- NOTE | 2024-11-19 09:28 | P.PN ---
Subjective Progress Note Date: 11/19/24 This is a 59-year-old gentleman admitted with acute COPD exacerbation. Maintained on nebulized bronchodilators, IV steroids, Symbicort and Augmentin. Procalcitonin normal, 0.03, viral studies negative. Reports exertional shortness of breath. Maintaining O2 sats in the 90s on 3 L nasal cannula. Afebrile. Creatinine mildly increased, 1.06. 11/19/2024 maintained on nebulized bronchodilators, IV steroids, Symbicort, Augmentin.Continues to require 3 L nasal cannula O2 to maintain O2 sats of 93 to 94%. Reports he has been up since 2 AM with increased productive coughing of clear sputum. Wheezing with less rhonchi today. afebrile. Labs pending. Steroid-induced hyperglycemia, with NovoLog sliding scale and low-dose Levemir insulin initiated yesterday. Hemoglobin A1c pending. Objective - Vital Signs Vital signs: Vital Signs Temp 97.4 F L 11/19/24 07:05 Pulse 68 11/19/24 07:05 Resp 18 11/19/24 07:05 BP 123/72 11/19/24 07:05 Pulse Ox 94 L 11/19/24 07:05 FiO2 Intake & Output 11/18/24 11/19/24 11/19/24 18:59 06:59 18:59 Intake Total 240 Balance 240 Intake: Oral 240 Other: Voiding Method Urinal # Voids 3 1 # Bowel Movements 1 - Exam GENERAL: Alert and oriented x3, sitting up in bed, no acute distress. HEENT: Normocephalic, atraumatic, pupils are round and equally reactive,No conjunctival pallor.MMM. CARDIOVASCULAR: S1 and S2 present. No murmurs, rubs, or gallops. PULMONARY: Unlabored, equal air entry, bilateral expiratory wheezing with less rhonchi . ABDOMEN: Soft, nontender, nondistended, normoactive bowel sounds. EXTREMITIES: No cyanosis, clubbing, or pedal edema. NEUROLOGICAL: Gross neurological examination did not reveal any focal deficits. SKIN: Warm and dry ,no rashes. - Labs CBC & Chem 7: 11/17/24 06:55 11/17/24 06:55 Labs: Abnormal Lab Results - Last 24 Hours (Table) 11/18/24 11/18/24 11/19/24 Range/Units 17:40 21:16 06:19 POC Glucose (mg/dL) 403 H 306 H 212 H (70-110) mg/dL Assessment and Plan Assessment: Acute COPD exacerbation Acute hypoxic respiratory failure, secondary to the above , does not wear O2 at home. Nicotine dependence Degenerative joint disease Plan: Continue on current medication regimen ,monitoring and symptomatic treatment. Titrate O2 as per parameters established by pulmonary of maintaining greater than 90% . Continue nebulized bronchodilators, steroids and Symbicort. Close monitoring of Accu-Cheks, A1c pending. Labs pending. increase activity as tolerated. Smoking cessation reinforced. The impression and plan of care has been dictated as directed. : I performed a history and examination of this patient, discussed the same with the dictator. I agree with the dictator's note ,documented as a scribe. Any additional findings or plans will be noted.
[2024-11-19 10:50] LABS: Blood Urea Nitrogen 23.1 mg/dL (9.0-27.0); Calcium 8.6 mg/dL (8.7-10.3); Carbon Dioxide 25.9 mmol/L (21.6-31.8); Chloride 100 mmol/L (96-109); Glucose 227 mg/dL (70-110); Potassium 4.7 mmol/L (3.5-5.5); Sodium 136 mmol/L (135-145)
[2024-11-19 12:09] LABS: Glucose,Whole Blood 299 mg/dL (70-110)
--- NOTE | 2024-11-19 14:58 | P.PN ---
Subjective Progress Note Date: 11/19/24 59-year-old male with history of moderate COPD. His FEV1 is 60% of predicted. The patient presents to the emergency department, with increasing shortness of breath. I see the patient in the office, for his COPD. Anyway, in addition to shortness of breath, the patient had cough, and wheezing. The patient is admitted with a diagnosis of COPD exacerbation. His chest x-ray does not show anything acute. He does have a history of prostate cancer, and ongoing tobacco use. The patient is currently on DuoNebs, Solu-Medrol, and we add Symbicort. In addition, he was given some Augmentin in the emergency department. A procalcitonin level is pending. Current labs include a white count 8.5, hemoglo bin 14.7, hematocrit 44.8, and a normal platelet count. Coagulation studies are normal. Sodium 137, potassium 4.4, chlorides 107, CO2 25, BUN 14, creatinine 0.95. Glucose is 136. Viral screen was negative. On 11/18/2023, the patient is being seen for a follow-up. Doing well. Less bronchospastic and wheezy compared to yesterday. Denies having any new complaints. The patient is known to have moderately severe COPD with an FEV1 of 60% of predicted. He presented to us with acute cough and congestion and chest tightness and wheezing consistent with COPD exacerbation. He remains on Symbico rt. He remains on DuoNeb nebulized treatments and IV Solu-Medrol. Viral screen has been negative. Labs from yesterday were noted. No new labs are available from today. The patient has developed some hyperglycemia related to systemic steroids and the patient is currently on IV Solu-Medrol 60 mg every 6 hours. Will need to be placed on insulin sliding scale coverage. Patient is on Augmentin as a broad-spectrum antibiotic coverage. Chest x-ray from 11/16/2024 shows no acute cardiopulmonary process. 11/19/2024, the patient is still having cough and congestion and chest tightness or wheezing. Limited improvement over the past 24 hours. The patient remains on DuoNeb nebulized treatments [id number], remains on Symbicort and remains on IV Solu-Medrol 60 mg every 6 hours. He is also using Mucinex twice a day. Remains on oxygen at 3 L with a pulse ox of 93%. He continues to desatur ate on room air oxygen. Electrolytes are all within normal limits with a sodium level of 136, BUN is 23 with a creatinine of 1.0. Most recent blood sugar was 212. The chest x-ray that was done at time of admission showed no acute cardiopulmonary abnormalities. Objective - Vital Signs Vital signs: Vital Signs Temp 97.4 F L 11/19/24 07:05 Pulse 76 11/19/24 12:48 Resp 18 11/19/24 07:05 BP 123/72 11/19/24 07:05 Pulse Ox 93 L 11/19/24 11:45 FiO2 Intake & Output 11/18/24 11/19/24 11/19/24 18:59 06:59 18:59 Intake Total 240 Balance 240 Intake: Oral 240 Other: Voiding Method Urinal # Voids 3 1 # Bowel Movements 1 - Exam No acute distress, oriented 3. Currently on 3 L. HEENT examination is grossly unremarkable. Mucous membranes are moist. No oral lesions. Neck supple. Full range of motion. No adenopathy thyromegaly or neck vein distention. Cardiovascular examination reveals regular rhythm rate. S1-S2 normal. No S3 or S4. No discernible murmur noted. Lungs reveal inspiratory and expiratory wheezes. No rhonchi or crackles. Breath sounds equal bilaterally. Abdomen soft bowel sounds are heard. No masses or tenderness. Extremities are intact. No cyanosis clubbing or edema. Skin is without rash or lesion. Neurologic examination is brief but nonfocal. - Labs CBC & Chem 7: 11/17/24 06:55 11/19/24 06:20 Labs: Abnormal Lab Results - Last 24 Hours (Table) 11/18/24 11/18/24 11/19/24 Range/Units 17:40 21:16 06:19 BUN/Creatinine Ratio (12.00-20.00) Ratio Glucose (70-110) mg/dL POC Glucose (mg/dL) 403 H 306 H 212 H (70-110) mg/dL Hemoglobin A1c (<=6.0) % Calcium (8.7-10.3) mg/dL 11/19/24 11/19/24 11/19/24 Range/Units 06:20 06:20 12:07 BUN/Creatinine Ratio 23.10 H (12.00-20.00) Ratio Glucose 227 H (70-110) mg/dL POC Glucose (mg/dL) 299 H (70-110) mg/dL Hemoglobin A1c 6.9 H (<=6.0) % Calcium 8.6 L (8.7-10.3) mg/dL Assessment and Plan Plan: Acute hypoxemic respiratory failure secondary to acute exacerbation of COPD. History of moderate COPD with an FEV1 that 60% of predicted. History of ongoing tobacco use with nicotine addiction. History of prostate cancer. History of degenerative joint disease. History of eczema. Plan Continues to be symptomatic and the patient continues to have symptoms of cough and congestion and wheezing Continue titrating the oxygen flow to maintain saturation above 90% Stop the Symbicort and switch this patient to a combination of Perforomist and Pulmicort updrafts IV Solu-Medrol 60 mg every 6 hours Insulin sliding scale coverage for blood sugar control Monitor blood sugars Clinically stable Chest x-ray is normal Viral screen has been negative Will continue to follow Smoking cessation counseling has been done. Not ready for discharge yet. Will continue to follow.
[2024-11-19 17:35] LABS: Glucose,Whole Blood 287 mg/dL (70-110)
[2024-11-19] MEDS: FORMOTEROL FUMARATE 20 MCG/2 ML NEBU INHALATION SCH (20:09)
[2024-11-19] MEDS: BUDESONIDE 0.5 MG/2 ML NEBU INHALATION SCH (20:09)
[2024-11-19 20:30] LABS: Glucose,Whole Blood 294 mg/dL (70-110)
[2024-11-20 06:29] LABS: Glucose,Whole Blood 207 mg/dL (70-110)
[2024-11-20] MEDS: NICOTINE 21MG/24HR PATCH TRANSDERM SCH (10:03)
[2024-11-20 12:04] LABS: Glucose,Whole Blood 360 mg/dL (70-110)
--- NOTE | 2024-11-20 12:35 | XR ---
EXAMINATION TYPE: XR chest 1V portable DATE OF EXAM: 11/20/2024 12:19 PM COMPARISON: 11/16/2024 CLINICAL INDICATION: Male, 59 years old with history of SOB, , FINDINGS: Heart normal size. Hyperinflation and mild interstitial prominence. Some external artifact with a hiram e projecting over the right side of the chest. No consolidation or pleural effusion. IMPRESSION: COPD. No acute process seen. [facility], , 11/20/2024 12:33 PM
[2024-11-20] MEDS ORDERED: DEXTROSE 50% SYRINGE 50 ML IVP PRN ×2 (13:51)
--- NOTE | 2024-11-20 14:45 | P.PN ---
Subjective Progress Note Date: 11/20/24 59-year-old male with history of moderate COPD. His FEV1 is 60% of predicted. The patient presents to the emergency department, with increasing shortness of breath. I see the patient in the office, for his COPD. Anyway, in addition to shortness of breath, the patient had cough, and wheezing. The patient is admitted with a diagnosis of COPD exacerbation. His chest x-ray does not show anything acute. He does have a history of prostate cancer, and ongoing tobacco use. The patient is currently on DuoNebs, Solu-Medrol, and we add Symbicort. In addition, he was given some Augmentin in the emergency department. A procalcitonin level is pending. Current labs include a white count 8.5, hemoglo bin 14.7, hematocrit 44.8, and a normal platelet count. Coagulation studies are normal. Sodium 137, potassium 4.4, chlorides 107, CO2 25, BUN 14, creatinine 0.95. Glucose is 136. Viral screen was negative. On 11/18/2023, the patient is being seen for a follow-up. Doing well. Less bronchospastic and wheezy compared to yesterday. Denies having any new complaints. The patient is known to have moderately severe COPD with an FEV1 of 60% of predicted. He presented to us with acute cough and congestion and chest tightness and wheezing consistent with COPD exacerbation. He remains on Symbico rt. He remains on DuoNeb nebulized treatments and IV Solu-Medrol. Viral screen has been negative. Labs from yesterday were noted. No new labs are available from today. The patient has developed some hyperglycemia related to systemic steroids and the patient is currently on IV Solu-Medrol 60 mg every 6 hours. Will need to be placed on insulin sliding scale coverage. Patient is on Augmentin as a broad-spectrum antibiotic coverage. Chest x-ray from 11/16/2024 shows no acute cardiopulmonary process. 11/19/2024, the patient is still having cough and congestion and chest tightness or wheezing. Limited improvement over the past 24 hours. The patient remains on DuoNeb nebulized treatments [id number], remains on Symbicort and remains on IV Solu-Medrol 60 mg every 6 hours. He is also using Mucinex twice a day. Remains on oxygen at 3 L with a pulse ox of 93%. He continues to desatur ate on room air oxygen. Electrolytes are all within normal limits with a sodium level of 136, BUN is 23 with a creatinine of 1.0. Most recent blood sugar was 212. The chest x-ray that was done at time of admission showed no acute cardiopulmonary abnormalities. On 11/20/2024, the patient is being seen for a follow-up. Improved compared to yesterday, less bronchospastic and wheezy. I discussed the Symbicort and put the patient on a combination of Perforomist and Pulmicort updrafts. The patient is also on DuoNeb and IV Solu-Medrol. Remains on oxygen at 3 L with a pulse ox of 93%. Afebrile. Hemodynamically stable. No other significant events overnight. Continues to have coughing spells although this is less severe. Repeat chest x-ray was done it was consistent with COPD without any airspace disease or consolidation. Patient remains on insulin sliding scale coverage and the patient was also given 10 units of Levemir for a tighter blood sugar control. Objective - Vital Signs Vital signs: Vital Signs Temp 97.6 F 11/20/24 07:28 Pulse 88 11/20/24 12:33 Resp 19 11/20/24 07:28 BP 121/71 11/20/24 07:28 Pulse Ox 92 L 11/20/24 07:28 FiO2 Intake & Output 11/19/24 11/20/24 11/20/24 18:59 06:59 18:59 Intake Total 240 Balance 240 Intake: Oral 240 Other: # Voids 2 2 - Exam No acute distress, oriented 3. Currently on 3 L. HEENT examination is grossly unremarkable. Mucous membranes are moist. No oral lesions. Neck supple. Full range of motion. No adenopathy thyromegaly or neck vein distention. Cardiovascular examination reveals regular rhythm rate. S1-S2 normal. No S3 or S4. No discernible murmur noted. Lungs reveal inspiratory and expiratory wheezes. No rhonchi or crackles. Breath sounds equal bilaterally. Abdomen soft bowel sounds are heard. No masses or tenderness. Extremities are intact. No cyanosis clubbing or edema. Skin is without rash or lesion. Neurologic examination is brief but nonfocal. - Labs CBC & Chem 7: 11/17/24 06:55 11/19/24 06:20 Labs: Abnormal Lab Results - Last 24 Hours (Table) 11/19/24 11/19/24 11/20/24 Range/Units 17:26 20:29 06:28 POC Glucose (mg/dL) 287 H 294 H 207 H (70-110) mg/dL 11/20/24 Range/Units 12:03 POC Glucose (mg/dL) 360 H (70-110) mg/dL Assessment and Plan Plan: Acute hypoxemic respiratory failure secondary to acute exacerbation of COPD, clinically improving. Shortness of breath and cough is also subsiding. History of moderate COPD with an FEV1 that 60% of predicted. History of ongoing tobacco use with nicotine addiction. History of prostate cancer. History of degenerative joint disease. History of eczema. Plan Clinically improving, slow to progress Continues to be symptomatic and the patient continues to have symptoms of cough and congestion and wheezing Continue titrating the oxygen flow to maintain saturation above 90% Continue combination of Perforomist and Pulmicort updrafts IV Solu-Medrol 60 mg every 6 hours Insulin sliding scale coverage for blood sugar control in addition to Levemir insulin 10 units daily for a tighter blood sugar control Monitor blood sugars Clinically stable Chest x-ray is normal 11/20/2024 Viral screen has been negative Will continue to follow Smoking cessation counseling has been done. .
--- NOTE | 2024-11-20 16:40 | P.PN ---
Subjective Progress Note Date: 11/20/24 This is a 59-year-old gentleman admitted with acute COPD exacerbation. Maintained on nebulized bronchodilators, IV steroids, Symbicort and Augmentin. Procalcitonin normal, 0.03, viral studies negative. Reports exertional shortness of breath. Maintaining O2 sats in the 90s on 3 L nasal cannula. Afebrile. Creatinine mildly increased, 1.06. 11/19/2024 maintained on nebulized bronchodilators, IV steroids, Symbicort, Augmentin.Continues to require 3 L nasal cannula O2 to maintain O2 sats of 93 to 94%. Reports he has been up since 2 AM with increased productive coughing of clear sputum. Wheezing with less rhonchi today. afebrile. Labs pending. Steroid-induced hyperglycemia, with NovoLog sliding scale and low-dose Levemir insulin initiated yesterday. Hemoglobin A1c pending. 11/20/2024 staff reports patient slept better last night. Less wheezy, coughing improved, O2 sats in the 90s on 3 L nasal cannula. Maintained on nebulized bronchodilators including Symbicort switched to Perforomist and Pulmicort updrafts yesterday and IV steroids. Blood sugars elevated-induced by steroids, continues on Levemir insulin along with NovoLog sliding scale. A1c 6.9. Repeat chest x-ray pending. Objective - Vital Signs Vital signs: Vital Signs Temp 97.6 F 11/20/24 07:28 Pulse 88 11/20/24 12:33 Resp 19 11/20/24 07:28 BP 121/71 11/20/24 07:28 Pulse Ox 92 L 11/20/24 07:28 FiO2 Intake & Output 11/19/24 11/20/24 11/20/24 18:59 06:59 18:59 Intake Total 240 Balance 240 Intake: Oral 240 Other: # Voids 2 2 - Exam GENERAL: Alert and oriented x3, sitting up in chair no acute distress. HEENT: Normocephalic, atraumatic, pupils are round and equally reactive,No conjunctival pallor.MMM. NECK: Supple, no JVD. CARDIOVASCULAR: S1 and S2 present. No murmurs, rubs, or gallops. PULMONARY: Unlabored, equal air entry, bilateral expiratory wheezing. ABDOMEN: Soft, nontender, nondistended,+BS EXTREMITIES: No cyanosis, clubbing, or pedal edema. NEUROLOGICAL: Gross neurological examination did not reveal any focal deficits. SKIN: Warm and dry ,no rashes. - Labs CBC & Chem 7: 11/17/24 06:55 11/19/24 06:20 Labs: Abnormal Lab Results - Last 24 Hours (Table) 11/19/24 11/19/24 11/20/24 Range/Units 17:26 20:29 06:28 POC Glucose (mg/dL) 287 H 294 H 207 H (70-110) mg/dL 11/20/24 Range/Units 12:03 POC Glucose (mg/dL) 360 H (70-110) mg/dL Assessment and Plan Assessment: Acute COPD exacerbation Acute hypoxic respiratory failure, secondary to the above , does not wear O2 at home. Diabetes mellitus, hemoglobin A1c 6.9 Nicotine dependence Degenerative joint disease Plan: Continue on current medication regimen ,monitoring and symptomatic treatment. Nicotine patch added to med regimen-at this time patient declining. Smoking cessation reinforced. titrate O2 as per parameters established by pulmonary of maintaining greater than 90% . Continue nebulized bronchodilators, steroids and Symbicort. Tight blood sugar control, Levemir insulin added additionally at night, Premeal insulin with parameters- close monitoring of Accu-Cheks.Increase activity as tolerated. The impression and plan of care has been dictated as directed. : I performed a history and examination of this patient, discussed the same with the dictator. I agree with the dictator's note ,documented as a scribe. Any additional findings or plans will be noted.
[2024-11-20 17:36] LABS: Glucose,Whole Blood 217 mg/dL (70-110)
[2024-11-20] MEDS: INSULIN ASPART (NovoLOG) 100 UNIT/ML VIAL SQ SCH (18:06)
[2024-11-20 20:21] LABS: Glucose,Whole Blood 262 mg/dL (70-110)
[2024-11-20] MEDS: INSULIN DETEMIR (LEVEMIR) 100 UNIT/ML SYR SQ SCH (21:40)
[2024-11-20] MEDS: NYSTATIN 100,000 UNIT/ML SUSP 500,000 UNIT/5 ML CUP PO SCH (21:42)
[2024-11-21 05:35] LABS: Glucose,Whole Blood 238 mg/dL (70-110)
[2024-11-21 09:41] LABS: BUN/Creat Ratio 31.56 Ratio (12.00-20.00); Blood Urea Nitrogen 28.4 mg/dL (9.0-27.0); Calcium 8.1 mg/dL (8.7-10.3); Carbon Dioxide 27.7 mmol/L (21.6-31.8); Chloride 101 mmol/L (96-109); Glucose 245 mg/dL (70-110); Potassium 4.9 mmol/L (3.5-5.5); Sodium 136 mmol/L (135-145)
--- NOTE | 2024-11-21 11:53 | P.DS ---
Providers Date of admission: 11/19/24 16:23 Expected date of discharge: 11/21/24 Attending physician: Venkatesh Weaver MD Consults: 11/16/24 15:40 Consult Physician Routine Consulting Provider: Leno Bermeo Consult Reason/Comments: COPD Do you want consulting provider notified?: Yes Primary care physician: [facility] Hospital Course: Final Diagnoses: Acute COPD exacerbation Acute hypoxic respiratory failure, secondary to the above , does not wear O2 at home. Diabetes mellitus II, hemoglobin A1c 6.9 Nicotine dependence Degenerative joint disease Hospital course:This is a 59-year-old gentleman admitted with acute COPD exacerbation. Maintained on nebulized bronchodilators, IV steroids, Symbicort and Augmentin. Procalcitonin normal, 0.03, viral studies negative. Reports exertional shortness of breath. Maintaining O2 sats in the 90s on 3 L nasal cannula. Afebrile. Creatinine mildly increased, 1.06. 11/19/2024 maintained on nebulized bronchodilators, IV steroids, Symbicort, Augmentin.Continues to require 3 L nasal cannula O2 to maintain O2 sats of 93 to 94%. Reports he has been up since 2 AM with increased productive coughing of clear sputum. Wheezing with less rhonchi today. afebrile. Labs pending. Steroid-induced hyperglycemia, with NovoLog sliding scale and low-dose Levemir insulin initiated yesterday. Hemoglobin A1c pending. 11/20/2024 staff reports patient slept better last night. Less wheezy, coughing improved, O2 sats in the 90s on 3 L nasal cannula. Maintained on nebulized bronchodilators including Symbicort switched to Perforomist and Pulmicort updrafts yesterday and IV steroids. Blood sugars elevated-induced by steroids, continues on Levemir insulin along with NovoLog sliding scale. A1c 6.9. Repeat chest x-ray pending. Significant clinical improvement. Minimal expiratory wheeze. Reports occasional coughing. Incentive spirometer up to 2500. Currently off of oxygen, maintaining O2 sats of 97%. Reports he has been ambulating around in his room, tolerating well, denies exertional shortness of breath. Ambulated in prado, tolerated well ,O2 sat on room air after ambulation 92%. Chest pain, palpitations or shortness of breath. Discussed his newly diagnosed diabetes mellitus type 2, will discharge on metformin 500 mg daily, Accu-Cheks 4 times daily with further education and recommendations outpatient in clinic. Smoking reinforced. Patient will be discharged home today in a stable condition with guarded prognosis pending final DC recommendations and clearance per pulmonary. The impression and plan of care has been dictated as directed. : I performed a history and examination of this patient, discussed the same with the dictator. I agree with the dictator's note ,documented as a scribe. Any additional findings or plans will be noted. Patient Condition at Discharge: Stable Plan - Discharge Summary Discharge Rx Participant: No New Discharge Prescriptions: New Nystatin 100,000 Unit/ml Susp [Mycostatin Oral Susp] 500,000 unit PO QID 3 Days #60 ml metFORMIN HCL 500 mg PO DAILY #30 tablet predniSONE 10 mg PO DIRECTED #30 tab Continue Tiotropium 2.5 Mcg/Puff [Spiriva Respimat 2.5 Mcg] 2 puff INHALATION RT-DAILY guaiFENesin-DM 600/30MG [Mucinex Dm] 1 tab PO TID Albuterol Inhaler [Ventolin Hfa Inhaler] 2 puff INHALATION RT-Q4H PRN PRN Reason: Shortness Of Breath Ipratropium-Albuterol Nebulize [Duoneb 0.5 mg-3 mg/3 ml Soln] 3 ml INHALATION RT-TID PRN PRN Reason: Shortness Of Breath Discharge Medication List Albuterol Inhaler [Ventolin Hfa Inhaler] 2 puff INHALATION RT-Q4H PRN 01/24/24 [History] Tiotropium 2.5 Mcg/Puff [Spiriva Respimat 2.5 Mcg] 2 puff INHALATION RT-DAILY 01/24/24 [History] Ipratropium-Albuterol Nebulize [Duoneb 0.5 mg-3 mg/3 ml Soln] 3 ml INHALATION RT-TID PRN 11/16/24 [History] guaiFENesin-DM 600/30MG [Mucinex Dm] 1 tab PO TID 11/16/24 [History] Nystatin 100,000 Unit/ml Susp [Mycostatin Oral Susp] 500,000 unit PO QID 3 Days #60 ml 11/21/24 [Rx] metFORMIN HCL 500 mg PO DAILY #30 tablet 11/21/24 [Rx] predniSONE 10 mg PO DIRECTED #30 tab 11/21/24 [Rx] Follow up Appointment(s)/Referral(s): Giulia Lopez PAC [REFERRING] - 1 Week Patient Instructions/Handouts: How to Stop Smoking (DC) Activity/Diet/Wound Care/Special Instructions: Case management to arrange for glucometer and testing supplies https://www.cdc.gov/tobacco/campaign/tips/quit-smoking/index.html Its never too late to quit smoking. Quitting smoking now improves your health and reduces your risk of heart disease, cancer, lung disease, and other smoking- related illnesses. Start Your Quitting Journey Resources for Quitting Telephone 3-621-YCNX-NOW ( ) 7-682-XONMK-YA ( ) (Espaol) (??) (???) (Ti?ng Vi?t) Text Messaging Services (Message and data rates may apply) Text QUITNOW to 277095 Prot-Ono SHANTI NARAYAN al [id number] (Espaol) Smartphone Brenda quitSTART[employer] Managing Common Withdrawal Symptoms Learn how to identify and navigate common withdrawal symptoms. How Quitlines Can Help Quitlines provide free coaching over the phone to help you quit smoking. Available in several languages. Quit-Smoking Medicines Learn what available medicines can do to help you quit smoking for good. State Quitline Services Learn about quitline services available in your area through the [place] [facility] Tips for Quitting Get tips to help you deal with urges and cravings. Making a Quit Plan Preparation is cook to quitting successfully, and making a quit plan is the first step. Discharge/Stand Alone Forms: Outpatient Counseling
[2024-11-21 12:15] LABS: Glucose,Whole Blood 251 mg/dL (70-110)
[2024-11-21 12:59] VITALS: BMI 26.5
[2024-11-21 16:22] VITALS: BP 130/75; PULSE 82; RESP 18; TEMP 97.6
--- NOTE | 2024-11-21 18:14 | P.PN ---
Subjective Progress Note Date: 11/21/24 59-year-old male with history of moderate COPD. His FEV1 is 60% of predicted. The patient presents to the emergency department, with increasing shortness of breath. I see the patient in the office, for his COPD. Anyway, in addition to shortness of breath, the patient had cough, and wheezing. The patient is admitted with a diagnosis of COPD exacerbation. His chest x-ray does not show anything acute. He does have a history of prostate cancer, and ongoing tobacco use. The patient is currently on DuoNebs, Solu-Medrol, and we add Symbicort. In addition, he was given some Augmentin in the emergency department. A procalcitonin level is pending. Current labs include a white count 8.5, hemoglo bin 14.7, hematocrit 44.8, and a normal platelet count. Coagulation studies are normal. Sodium 137, potassium 4.4, chlorides 107, CO2 25, BUN 14, creatinine 0.95. Glucose is 136. Viral screen was negative. On 11/18/2023, the patient is being seen for a follow-up. Doing well. Less bronchospastic and wheezy compared to yesterday. Denies having any new complaints. The patient is known to have moderately severe COPD with an FEV1 of 60% of predicted. He presented to us with acute cough and congestion and chest tightness and wheezing consistent with COPD exacerbation. He remains on Symbico rt. He remains on DuoNeb nebulized treatments and IV Solu-Medrol. Viral screen has been negative. Labs from yesterday were noted. No new labs are available from today. The patient has developed some hyperglycemia related to systemic steroids and the patient is currently on IV Solu-Medrol 60 mg every 6 hours. Will need to be placed on insulin sliding scale coverage. Patient is on Augmentin as a broad-spectrum antibiotic coverage. Chest x-ray from 11/16/2024 shows no acute cardiopulmonary process. 11/19/2024, the patient is still having cough and congestion and chest tightness or wheezing. Limited improvement over the past 24 hours. The patient remains on DuoNeb nebulized treatments [id number], remains on Symbicort and remains on IV Solu-Medrol 60 mg every 6 hours. He is also using Mucinex twice a day. Remains on oxygen at 3 L with a pulse ox of 93%. He continues to desatur ate on room air oxygen. Electrolytes are all within normal limits with a sodium level of 136, BUN is 23 with a creatinine of 1.0. Most recent blood sugar was 212. The chest x-ray that was done at time of admission showed no acute cardiopulmonary abnormalities. On 11/20/2024, the patient is being seen for a follow-up. Improved compared to yesterday, less bronchospastic and wheezy. I discussed the Symbicort and put the patient on a combination of Perforomist and Pulmicort updrafts. The patient is also on DuoNeb and IV Solu-Medrol. Remains on oxygen at 3 L with a pulse ox of 93%. Afebrile. Hemodynamically stable. No other significant events overnight. Continues to have coughing spells although this is less severe. Repeat chest x-ray was done it was consistent with COPD without any airspace disease or consolidation. Patient remains on insulin sliding scale coverage and the patient was also given 10 units of Levemir for a tighter blood sugar control. On today's evaluation of 11/21/2024, patient is doing well. No specific complaints. Recovering from his acute stroke exacerbation. Clinically stable. Using incentive spirometer. Currently off oxygen and is able to maintain oxygen saturation above 90%. Home O2 evaluation was done and the patient was not candidate for home O2 supplementation. Smoking cessation counseling was done and the patient is to be discharged home today. Sodium levels at 136, potassium level is 4.9, BUN 28 with a creatinine of 0.9. Calcium level is at 8.1 with an HbA1c of 6.7. Objective - Vital Signs Vital signs: Vital Signs Temp 97.8 F 11/21/24 07:58 Pulse 87 11/21/24 11:41 Resp 17 11/21/24 08:00 BP 143/77 11/21/24 07:58 Pulse Ox 94 L 11/21/24 08:42 FiO2 Intake & Output 11/20/24 11/21/24 11/21/24 18:59 06:59 18:59 Intake Total 118 Balance 118 Intake: Oral 118 Other: Voiding Method Urinal # Voids 3 3 - Exam No acute distress, oriented 3. Currently on 3 L. HEENT examination is grossly unremarkable. Mucous membranes are moist. No oral lesions. Neck supple. Full range of motion. No adenopathy thyromegaly or neck vein distention. Cardiovascular examination reveals regular rhythm rate. S1-S2 normal. No S3 or S4. No discernible murmur noted. Lungs reveal inspiratory and expiratory wheezes. No rhonchi or crackles. Breath sounds equal bilaterally. Abdomen soft bowel sounds are heard. No masses or tenderness. Extremities are intact. No cyanosis clubbing or edema. Skin is without rash or lesion. Neurologic examination is brief but nonfocal. - Labs CBC & Chem 7: 11/17/24 06:55 11/21/24 02:56 Labs: Abnormal Lab Results - Last 24 Hours (Table) 11/20/24 11/20/24 11/20/24 Range/Units 12:03 17:34 20:14 BUN (9.0-27.0) mg/dL BUN/Creatinine Ratio (12.00-20.00) Ratio Glucose (70-110) mg/dL POC Glucose (mg/dL) 360 H 217 H 262 H (70-110) mg/dL Hemoglobin A1c (<=6.0) % Calcium (8.7-10.3) mg/dL 11/21/24 11/21/24 11/21/24 Range/Units 02:56 02:56 05:33 BUN 28.4 H (9.0-27.0) mg/dL BUN/Creatinine Ratio 31.56 H (12.00-20.00) Ratio Glucose 245 H (70-110) mg/dL POC Glucose (mg/dL) 238 H (70-110) mg/dL Hemoglobin A1c 6.7 H (<=6.0) % Calcium 8.1 L (8.7-10.3) mg/dL Assessment and Plan Plan: Acute hypoxemic respiratory failure secondary to acute exacerbation of COPD, clinically improving. Clinically improved, oxygenation improved History of moderate COPD with an FEV1 that 60% of predicted. History of ongoing tobacco use with nicotine addiction. History of prostate cancer. History of degenerative joint disease. History of eczema. Plan Clinically improving Oxygenation improved Smoking cessation counseling has been done Discharge home today to be followed up on outpatient basis. .
== END 2024-11-21 17:44 | disposition home or self-care (01) | DRG 189 ==
LOC: EC 09:15 → 6NMEDSUR 10:56 → OBSVTOIN 11-19 16:23
PROVIDERS: ADMIT Family Medicine; ATTEND Family Medicine
DX: J96.01 Acute respiratory failure with hypoxia (principal); J44.1 Chronic obstructive pulmonary disease with (acute) exacerbation; E11.65 Type 2 diabetes mellitus with hyperglycemia; F17.200 Nicotine dependence, unspecified, uncomplicated; M19.90 Unspecified osteoarthritis, unspecified site; T38.0X5A Adverse effect of glucocorticoids and synthetic analogues, initial encounter; L30.9 Dermatitis, unspecified; N42.9 Disorder of prostate, unspecified; Z79.899 Other long term (current) drug therapy; Z91.012 Allergy to eggs; Z79.51 Long term (current) use of inhaled steroids; Z79.52 Long term (current) use of systemic steroids
CPT/HCPCS: 36415; 71045; 71046; 80048; 80053; 83036; 83605; 83735; 84145; 84484; 85025; 85610; 85730; 87636; 93005; 94640; 94760; 96374; 96375; 96376; 99285

== ENCOUNTER → 2025-01-07 | Outpatient (CLI) | payer OTHER | LOC: CPPFTMAIN 15:57 | PROVIDERS: ATTEND Internal Medicine Critical Care Medicine | DX: J44.9 Chronic obstructive pulmonary disease, unspecified (principal); Z91.012 Allergy to eggs | CPT/HCPCS: 94060; 94726; 94729 ==